=== PATIENT | female | born 1965 | race Caucasian/White ===

== ENCOUNTER 2021-08-23 13:08 | Observation (INO) ==
[2021-08-23 15:59] LABS: Basophils # (auto) 0.02 K/uL (0-0.2); Basophils % (auto) 0.2 %; Eosinophils # (auto) 0.02 K/uL (0-0.5); Eosinophils % (auto) 0.2 %; Hematocrit (blood only) 43.3 % (37-47); Hemoglobin 14.9 g/dL (12.0-16.0); Immature Granulocytes # (auto) 0.02 K/uL (0.00-0.02); Immature Granulocytes % (auto) 0.2 %; Lymphocytes # (auto) 1.96 K/uL (1.2-3.4); Lymphocytes % (auto) 15.6 %; Mean Corpuscular Hemoglobin 29.5 pg (25-34); Mean Corpuscular Hgb Conc 34.4 g/dL (32-36); Mean Corpuscular Volume 85.7 fL (80-100); Monocytes # (auto) 1.32 K/uL (0.11-0.59); Monocytes % (auto) 10.5 %; Neutrophils # (auto) 9.21 K/uL (1.4-6.5); Neutrophils % (auto) 73.3 %; Platelet Count 208 K/uL (130-400); RDW Coefficient of Variation 13.3 % (11.5-14.5); RDW Standard Deviation 41.4 fL (36.4-46.3); Red Blood Count 5.05 M/uL (4.2-5.4); White Blood Count 12.55 K/uL (4.8-10.8)
[2021-08-23 16:04] LABS: Appearance Urine Clear (Clear); Bacteria Urine Automated Negative (Negative); Bilirubin Urine Negative (Negative); Blood Urine 2+ (Negative); Color Urine Orange; Epithelial Cell Urine Auto 20-30 /lpf (0-5); Glucose Urine UA Negative (Negative); Ketones Urine 2+ (Negative); Leukocyte Esterase Urine Negative (Negative); Nitrite Urine Negative (Negative); Protein Urine Negative (Negative); RBC Urine Automated 0-4 /hpf (0-4); Specific Gravity Urine 1.017 (1.000-1.030); Urobilinogen Urine Negative (Negative); pH Urine 5.5 (4.5-7.5)
[2021-08-23 16:17] LABS: Alanine Aminotransferase 89 U/L (12-78); Albumin Level 3.7 gm/dl (3.4-5.0); Aspartate Aminotransferase 65 U/L (15-37); BUN Creatinine Ratio 10.9 (10-20); Blood Urea Nitrogen 9 mg/dl (7-18); Calcium 9.3 mg/dl (8.5-10.1); Carbon Dioxide 25 mmol/L (21-32); Chloride 102 mmol/L (98-107); Creatinine Clr Calc Pharmacy 94.9 ml/min; Est GFR (Non-African American) 79.3 ml/min; Glucose 95 mg/dl (70-99); Lipase 83 U/L (73-393); Pregnancy Test, Serum Negative (Negative); Sodium 134 mmol/L (136-145)
[2021-08-23 16:20] LABS: Albumin Globulin Ratio 0.8 (0.9-2); Alkaline Phosphatase 116 U/L (45-117); Bilirubin,Total 1.3 mg/dl (0.2-1); Globulin 4.7 gm/dl (2.5-4.0); Total Protein 8.4 gm/dl (6.4-8.2)
[2021-08-23] MEDS ORDERED: SODIUM CHLORIDE 0.9% 1000ML 1,000 ML IV ONE ×2 (18:29→20:32)
[2021-08-23] MEDS ORDERED: fentaNYL citrate 100 MCG/2 ML VIAL IV STA (18:29)
[2021-08-23] MEDS ORDERED: ONDANSETRON INJ 2 MG/ML 2 ML VIAL IV STA (18:29)
--- NOTE | 2021-08-23 18:35 | Emergency Department Note ---
Impression & Plan Acute cholecystitis, Smoker ED Provider Note Name: AMEENA DURAN Age: 55 Sex: F Arrives Via: Walk-In Informant: Patient, ED Provider: Joseph Braun MD Chief Complaint: Epigastric Pain Impression: Acute Cholecystitis Smoker Medical Decision Makin yr old female with history tobacco use arrives for acute epigastric pain over last 2 to 3 days, already seen OSH with findings of GB dysfunction and advised Gen Surg follow up. Arrives in quite some discomfort which was controlled with IV fentanyl and zofran. Labs with mild LFT bump and given amount of epigastric TTP felt that CT imaging indicated. CT with acute cholecytitis. CXR clear and labs otherwise OK. EKG ok and covid negative. Gen Surg in to evaluate and will take to OR in am. Triage/Nursing Notes reviewed by Me Differentials:Cholecystitis, Biliary Disfunction, ACS, PE, Dissection, AAA, renal disease, diverticulitis, mesenteric ischemia, pud, pancreatitis, amongst other pathologies. Vital Signs: reviewed and remarkable for no significant abnormalities Interventions: fentanyl iv, dilaudid iv, zofran iv, mefoxin 2gm iv, nss bolus Labs:Reviewed and remarkable for mild lft elevation Imaging:Radiologist interpretation reviewed by me: acute cholecytisis EKG:Per My Interpretation: Indication pre-op: Sinus tach 13 bpm, qtc 434. No Ectopy. No Ischemia. No previous for comparison Consults:Dr Hernandez Gen Surg Plan: Disposition:Hospitalization. Condition: Good History of Present Illness:55 yr old female arrives for evaluation of epigastric pain. Patient notes that she started having epigastric pain ye sterday. Rapidly worsening with radiation to LUQ. Notes at times it feels like her shoulder blades hurt. Associated nausea, chills, fevers, and weakness. Denies chest pain, shob, syncope, headache, neck pain, rashes, leg pain, back pain (beyond baseline sciatica), blood in stool, diarrhea, urinary symptoms, vomiting, leg swelling, nor other symptoms. Movement makes worse. Staying still makes better. No trauma, injuries, falls. No previous abdominal issues. Notes fentanyl at OSH helped some yesterday. She was seen at [facility] yesterday and after US stated that she was d/c'd to follow up with Gen Surg for possibly bad gallbladder. Pain persists and thus came to ED here. Not covid vaccinated, has not had covid that she is aware. ROS: See above HPI for pertinent positives & negatives. A total of 10 systems reviewed and were otherwise negative. Past Medical History:Spontaneous Pneumothorax, Sciatica, Treated Lymphoma Past Surgical History:Tube Thoracostomy Family History:Healthy Social History:Smoker, no drugs, no etoh, Home Medications:Multivitamins Allergies:Nulasta Vitals:Blood Pressure: 117/76, Pulse 110, RR 16, T 36.6C, O2 96% on RA Physical Exam: GENERAL: Patient is very uncomfortable appearing and in moderate distress. EYES: No scleral icterus, unremarkable pupils. ENT: Mucous membranes moist, no nasal congestion. NECK: No masses appreciated, nomeningismus, trachea is midline. RESPIRATORY: Rhonchi left lower lobe. No dyspnea. Clear to auscultation otherwise. No wheeze. CARDIOVASCULAR: Regular rate and rhythm.No murmurs, rubs, gallops appreciated. GASTROINTESTINAL: Very tender LUQ and Epigastrium with guarding, otherwise Abdomen soft.Bowel sounds positive. BACK: No midline tenderness, no CVA tenderness EXTREMITIES: Normal motion all extremities, no cyanosis, no edema. NEUROLOGIC: Alert and oriented, no acute motor or sensory deficits, no focal weakness, cranial nerves grossly intact. SKIN: No rash, no jaundice, no diaphoresis. PSYCH: Appropriate GCS: 15 ED Course: Times/Reassessments: gradual improvement, stable, agreeable to ho spitalization/or Joseph Braun MD Past Med/Surg History Social History Smoking Status: Current every day smoker Tobacco Type: Cigarettes Feels Safe at Home: Yes Allergies Allergies Allergy/AdvReac Type Severity Reaction Status Date / Time No Known Allergies Allergy Unverified 08/23/21 19:02 Home Meds Home Medications Medication Instructions Recorded Confirmed hyoscyamine sulfate 0.125 mg tablet 0.125 mg PO BID PRN 08/23/21 08/23/21 Results & Data (ED) Vital Signs Vital Signs - 24 hr 08/23/21 13:27 08/23/21 18:39 08/23/21 21:19 Temperature 36.6 C Temperature Source Temporal Artery Scan Pulse Rate 100 H 102 H Pulse Rate [Apical] 102 H 95 H Respiratory Rate 16 16 20 Respiratory Depth Normal Blood Pressure 117/76 Blood Pressure [Right Arm] 114/67 Blood Pressure Mean 89 Blood Pressure Mean [Right Arm] 82 Pulse Oximetry 96 98 98 Oxygen Delivery Method Room Air Room Air Sepsis Recent Fever Within 48 Hours No Sepsis New/Unexplained Change in Mental Status No Sepsis Action Taken by Nursing No Action Required Laboratory Data Result diagrams: 08/23/21 15:50 08/23/21 15:50 Lab Results 08/23/21 08/23/21 08/23/21 Range/Units 15:50 15:50 15:50 WBC 12.55 H (4.8-10.8) K/uL RBC 5.05 (4.2-5.4) M/uL Hgb 14.9 (12.0-16.0) g/dL Hct 43.3 (37-47) % MCV 85.7 (80-100) fL MCH 29.5 (25-34) pg MCHC 34.4 (32-36) g/dL RDW Std Deviation 41.4 (36.4-46.3) fL RDW Coeff of Barbara 13.3 (11.5-14.5) % Plt Count 208 (130-400) K/uL MPV 11.0 H (7.4-10.4) fL Immature Gran % (Auto) 0.2 % Neut % (Auto) 73.3 % Lymph % (Auto) 15.6 % Mcdowell % (Auto) 10.5 % Eos % (Auto) 0.2 % Baso % (Auto) 0.2 % Neut # (Auto) 9.21 H (1.4-6.5) K/uL Lymph # (Auto) 1.96 (1.2-3.4) K/uL Mcdowell # (Auto) 1.32 H (0.11-0.59) K/uL Eos # (Auto) 0.02 (0-0.5) K/uL Baso # (Auto) 0.02 (0-0.2) K/uL Immature Gran # (Auto) 0.02 (0.00-0.02) K/uL Sodium 134 L (136-145) mmol/L Potassium 4.0 (3.5-5.1) mmol/L Chloride 102 (98-107) mmol/L Carbon Dioxide 25 (21-32) mmol/L Anion Gap 7.0 (3-11) BUN 9 (7-18) mg/dl Creatinine 0.84 (0.6-1.2) mg/dl Est Cr Clr Drug Dosing 94.9 ml/min Est GFR ( Amer) 92.0 ml/min Est GFR (Non-Af Amer) 79.3 ml/min BUN/Creatinine Ratio 10.9 (10-20) Glucose 95 (70-99) mg/dl Calcium 9.3 (8.5-10.1) mg/dl Total Bilirubin 1.3 H (0.2-1) mg/dl AST 65 H (15-37) U/L ALT 89 H (12-78) U/L Alkaline Phosphatase 116 (45-117) U/L Troponin I < 0.015 (0-0.045) ng/ml Total Protein 8.4 H (6.4-8.2) gm/dl Albumin 3.7 (3.4-5.0) gm/dl Globulin 4.7 H (2.5-4.0) gm/dl Albumin/Globulin Ratio 0.8 L (0.9-2) Lipase 83 (73-393) U/L HCG, Qual Negative (Negative) Urine Color Urine Appearance (Clear) Urine pH (4.5-7.5) Ur Specific [place] (1.000-1.030) Urine Protein (Negative) Urine Glucose (UA) (Negative) Urine Ketones (Negative) Urine Blood (Negative) Urine Nitrite (Negative) Urine Bilirubin (Negative) Urine Urobilinogen (Negative) Ur Leukocyte Esterase (Negative) Urine WBC (Auto) (0-5) /hpf Urine RBC (Auto) (0-4) /hpf U Hyaline Cast (Auto) (0-5) /lpf U Epithel Cells (Auto) (0-5) /lpf Urine Bacteria (Auto) (Negative) COVID-19 Eval Order SARS-CoV-2 (PCR) (Negative) 08/23/21 08/23/21 08/23/21 Range/Units 15:50 21:03 21:03 WBC (4.8-10.8) K/uL RBC (4.2-5.4) M/uL Hgb (12.0-16.0) g/dL Hct (37-47) % MCV (80-100) fL MCH (25-34) pg MCHC (32-36) g/dL RDW Std Deviation (36.4-46.3) fL RDW Coeff of Barbara (11.5-14.5) % Plt Count (130-400) K/uL MPV (7.4-10.4) fL Immature Gran % (Auto) % Neut % (Auto) % Lymph % (Auto) % Mcdowell % (Auto) % Eos % (Auto) % Baso % (Auto) % Neut # (Auto) (1.4-6.5) K/uL Lymph # (Auto) (1.2-3.4) K/uL [place]owell # (Auto) (0.11-0.59) K/uL Eos # (Auto) (0-0.5) K/uL Baso # (Auto) (0-0.2) K/uL Immature Gran # (Auto) (0.00-0.02) K/uL Sodium (136-145) mmol/L Potassium (3.5-5.1) mmol/L Chloride (98-107) mmol/L Carbon Dioxide (21-32) mmol/L Anion Gap (3-11) BUN (7-18) mg/dl Creatinine (0.6-1.2) mg/dl Est Cr Clr Drug Dosing ml/min Est GFR ( Amer) ml/min Est GFR (Non-Af Amer) ml/min BUN/Creatinine Ratio (10-20) Glucose (70-99) mg/dl Calcium (8.5-10.1) mg/dl Total Bilirubin (0.2-1) mg/dl AST (15-37) U/L ALT (12-78) U/L Alkaline Phosphatase (45-117) U/L Troponin I (0-0.045) ng/ml Total Protein (6.4-8.2) gm/dl Albumin (3.4-5.0) gm/dl Globulin (2.5-4.0) gm/dl Albumin/Globulin Ratio (0.9-2) Lipase (73-393) U/L HCG, Qual (Negative) Urine Color [place] Urine Appearance Clear (Clear) Urine pH 5.5 (4.5-7.5) Ur Specific [place] 1.017 (1.000-1.030) Urine Protein Negative (Negative) Urine Glucose (UA) Negative (Negative) Urine Ketones 2+ H (Negative) Urine Blood 2+ H (Negative) Urine Nitrite Negative (Negative) Urine Bilirubin Negative (Negative) Urine Urobilinogen Negative (Negative) Ur Leukocyte Esterase Negative (Negative) Urine WBC (Auto) 1-5 (0-5) /hpf Urine RBC (Auto) 0-4 (0-4) /hpf U Hyaline Cast (Auto) 1-5 (0-5) /lpf U Epithel Cells (Auto) 20-30 H (0-5) /lpf Urine Bacteria (Auto) Negative (Negative) COVID-19 Eval Order Covid19 at [facility] SARS-CoV-2 (PCR) NEGATIVE (Negative) Administered Medications Discontinued Medications Fentanyl Citrate (Fentanyl Citrate 100 Mcg/2 Ml Vial) 75 mcg IV NOW STA Stop: 08/23/21 18:30 Last Admin: 08/23/21 18:39 Dose: 75 mcg Documented by: [id number] Hydromorphone HCl (Hydromorphone Inj 0.5 Mg/0.5 Ml Syr) 0.5 mg IV NOW STA Stop: 08/23/21 20:37 Last Admin: 08/23/21 21:18 Dose: 0.5 mg Documented by: [id number] Sodium Chloride (Nss 1000ml) 1,000 mls @ 999 mls/hr IV .Q1H1M ONE Stop: 08/23/21 19:29 Last Infusion: 08/23/21 19:11 Dose: 0 mls/hr Documented by: [id number] Admin: 08/23/21 18:39 Dose: 999 mls/hr Documented by: [id number] Cefoxitin Sodium (Mefoxin) 2,000 mg in 60 mls @ 100 mls/hr IV NOW STA Stop: 08/23/21 20:30 Last Infusion: 08/23/21 20:21 Dose: 0 mls/hr Documented by: [id number] Admin: 08/23/21 20:00 Dose: 100 mls/hr Documented by: [id number] Sodium Chloride (Nss 1000ml) 1,000 mls @ 999 mls/hr IV .Q1H1M ONE Stop: 08/23/21 21:32 Last Infusion: 08/23/21 22:37 Dose: 0 mls/hr Documented by: [id number] Admin: 08/23/21 21:18 Dose: 999 mls/hr Documented by: [id number] Ioversol (Optiray 320 100ml) 94 ml IV ONCE ONE Stop: 08/23/21 19:38 Last Admin: 08/23/21 19:38 Dose: 1 ml Documented by: [id number] Ondansetron HCl (Ondansetron Inj 2 Mg/Ml 2 Ml Vial) 4 mg IV NOW STA Stop: 08/23/21 18:30 Last Admin: 08/23/21 18:39 Dose: 4 mg Documented by: [id number] Imaging Data Radiologist's Impression: Abdomen/Pelvis CT 08/23/21 18:[address] WITH IV CONTRAST CT DOSE: 595.59 mGy.cm HISTORY: Acute epigastric and left upper quadrant abdominal pain epigastric, LUQ pain TECHNIQUE: Multiaxial CT images of the abdomen and pelvis were performed following the IV administration of 94 cc of Optiray, A dose lowering technique was utilized adhering to the principles of ALARA. COMPARISON STUDY: Chest radiograph of same day FINDINGS: The imaged inferior cardiac chambers are unremarkable. Linear subsegmental bibasilar atelectasis. No pneumatosis or pneumoperitoneum. The spleen, pancreas, adrenal glands and liver appear unremarkable. 6 mm indeterminate hypodense lesion of the right hepatic lobe on image 21 series 2 is likely benign. Patency of the hepatic and portal veins. Distended gallbladder with moderate wall thickening and pericholecystic edema. No biliary ductal dilation or cholelithiasis identified. There are a few partially calcified lymph nodes within the carlitos hepatis. Unremarkable kidneys. No hydronephrosis. Unremarkable urinary bladder. Hysterectomy. Trace free fluid within the dependent pelvis. Atherosclerosis of the aorta without aneurysm. No adenopathy. Unremarkable IVC. Mild wall thickening of the duodenum is likely reactive. Colonic diverticulosis. Mild fecal retention. Mild wall thickening of the ascending colon the, also likely reactive. Normal appendix. Unremarkable soft tissues. No acute fracture. Degenerative changes of the spine. Lumbar levoscoliosis. This IMPRESSION: 1. Findings suggestive of acute cholecystitis. No cholelithiasis or biliary ductal dilation identified. 2. Mild wall thickening of the proximal duodenum and ascending colon with trace pelvic free fluid, likely reactive. 3. No bowel obstruction. Normal appendix. 4. Colonic diverticulosis. ACT 112: Negative or not required by law. The above report was generated using voice recognition software. It may contain grammatical, syntax or spelling errors. Electronically signed by: Pete Post M.D. 08/23/2021 8:07 PM Chest X-Ray 08/23/21 18:29 XR chest 1V portable HISTORY: 55 years-old Female epigastric pain, rhonchi acute epigastric abdominal pain COMPARISON: None TECHNIQUE: Portable AP view of the chest FINDINGS: Cardiomediastinal and hilar silhouettes are within normal limits. Calcified plaque of the thoracic aorta. No pneumothorax, pleural effusion, airspace consolidation or overt pulmonary edema. Bones appear grossly intact. IMPRESSION: No acute process. ACT 112: Negative or not required by law. The above report was generated using voice recognition software. It may contain grammatical, syntax or spelling errors. Electronically signed by: Pete Post M.D. 08/23/2021 6:53 PM Discharge Plan Visit Data Chief Complaint: GI Assessment Stated Complaint: CHEST PAIN/BACK PAIN/PAIN UNDER RIBS ED Provider: Joseph Braun Discharge Problem: Acute cholecystitis, Smoker Patient Disposition: Admitted As Inpatient Discharge Instructions Interventions: ED Discharge Assessment Last Done: 08/24/21 00:55
--- NOTE | 2021-08-23 18:54 | XRay Report ---
XR chest 1V portable HISTORY: 55 years-old Female epigastric pain, rhonchi acute epigastric abdominal pain COMPARISON: None TECHNIQUE: Portable AP view of the chest FINDINGS: Cardiomediastinal and hilar silhouettes are within normal limits. Calcified plaque of the thoracic ao rta. No pneumothorax, pleural effusion, airspace consolidation or overt pulmonary edema. Bones appear grossly intact. IMPRESSION: No acute process. ACT 112: Negative or not required by law. The above report was generated using voice recognition software. It may contain grammatical, syntax o r spelling errors. Electronically signed by: Pete Post M.D. 08/23/2021 6:53 PM
[2021-08-23] MEDS ORDERED: OPTIRAY 320 100ml IV ONE (19:37)
[2021-08-23] MEDS ORDERED: cefOXitin 2,000 MG/60 ML BAG IV STA (19:55)
--- NOTE | 2021-08-23 20:09 | CT Scan Report ---
ABDOMEN AND PELVIS CT WITH IV CONTRAST CT DOSE: 595.59 mGy.cm HISTORY: Acute epigastric and left upper quadrant abdominal pain epigastric, LUQ pain TECHNIQUE: Multiaxial CT images of the abdomen and pelvis were performed following the IV administrat ion of 94 cc of Optiray, A dose lowering technique was utilized adhering to the principles of ALARA. COMPARISON STUDY: Chest radiograph of same day FINDINGS: The imaged inferior cardiac chambers are unremarkable. Linear subsegmental bibasilar atelectasis. No pneumatosis or pneumoperitoneum. The spleen, pancreas, adrenal glands and liver appear unremarkable. 6 mm indeterminate hypodense lesion of the right hepatic lobe on image 21 series 2 is likely benign. Patency of the hepatic and portal veins. Distended gallbladder with moderate wall thickening and rosy cholecystic edema. No biliary ductal dilation or cholelithiasis identified. There are a few partially calcified lymph nodes within the carlitos hepatis. Unremarkable kidneys. No hydronephrosis. Unremarkable urinary bladder. Hysterectomy. Trace free fluid within the dependent pelvis. Atherosclerosis of the aorta without aneurysm. No adenopathy. Unremarka ble IVC. Mild wall thickening of the duodenum is likely reactive. Colonic diverticulosis. Mild fecal retention. Mild wall thickening of the ascending colon the, also likely reactive. Normal appendix. Un remarkable soft tissues. No acute fracture. Degenerative changes of the spine. Lumbar levoscoliosis. This IMPRESSION: 1. Findings suggestive of acute cholecystitis. No cholelithiasis or biliary ductal dilation identifie d. 2. Mild wall thickening of the proximal duodenum and ascending colon with trace pelvic free fluid, li venkata reactive. 3. No bowel obstruction. Normal appendix. 4. Colonic diverticulosis. ACT 112: Negative or not required by law. The above report was generated using voice recognition software. It may contain grammatical, syntax o r spelling errors. Electronically signed by: Pete Post M.D. 08/23/2021 8:07 PM
[2021-08-23 20:11] LABS: Troponin I < 0.015 ng/ml (0-0.045)
[2021-08-23] MEDS ORDERED: HYDROmorphone INJ 0.5 MG/0.5 ML SYR IV STA (20:36)
[2021-08-23] MEDS ORDERED: HYDROmorphone INJ 0.5 MG/0.5 ML SYR IV PRN (20:36)
--- NOTE | 2021-08-23 22:21 | History & Physical Report ---
Date of Service August 23, 2021 Assessment & Plan (1) Acute cholecystitis: Plan: 55-year-old woman with acute cholecystitis. She has been administered antibiotics in the emergency department. Covid test is pending. I discussed with her the risks and benefits of laparoscopic, possible open cholecystectomy. The risks include: Bleeding, infection, injury to the surrounding structures, leak, obstruction, need for open or further procedures, diarrhea. She unde rstands and is agreeable to proceed with the surgery. All her questions have been answered. We will admit her to the hospital for IV antibiotics and pain control, and set her up for laparoscopic cholecystectomy first thing in the morning. History of Present Illness Primary Care Provider: Olga ShardaElayne Thomas 55-year-old woman who presents with 2-day history of right upper quadrant pain, progressing to epigastric and back pain up to the right shoulder. She has had some chills with this pain. Positive nausea, no vomiting. She denies acholic stools, dark urine, pruritus, jaundice. She was seen in another emergency room yesterday, and ultrasound was done which demonstrated a "bad gallbladder ". She was sent home to contact her surgeon. The pain worsened this morning and she came to the ER here. A CT scan demonstrates a distended gallbladder with significant inflammation and pericholecystic fluid. Allergies Allergy/AdvReac Type Severity Reaction Status Date / Time No Known Allergies Allergy Unverified 08/23/21 19:02 Home Medications Medication Instructions Recorded Confirmed Type hyoscyamine sulfate 0.125 mg tablet 0.125 mg PO BID PRN 08/23/21 08/23/21 History Past Med/Surg History Social History Smoking Status: Current every day smoker Tobacco Type: Cigarettes Feels Safe at Home: Yes Review of Systems Review of Systems: All systems reviewed & are unremarkable except as noted in HPI & below Physical Exam Constitutional: WD/WN, vitals as above Eyes: PERRL, conjunctivae normal, anicteric sclerae Neck: trachea midline, no thyromegaly Respiratory: normal respiratory effort, lungs clear to auscultation Cardiovascular: RRR, no murmur, no edema Gastrointestinal (Abdomen): Inspection/Auscultation: abdomen normal to inspection; abdomen not distended and no abdominal surgical scar P ercussion/Palpation: + abdomen tender (RUQ/epigastrium) and abdomen soft; no guarding and abdomen not rigid Musculoskeletal: Extremities: no cyanosis and no clubbing Skin: no rashes, warm and dry Psychiatric: A+Ox3, euthymic affect Results & Data Results & Data ([facility]) Vital Signs (Past 12 Hours) Vital Signs Temp Pulse Pulse Resp BP BP Pulse Ox 08/23/21 21:19 95 H 20 98 08/23/21 18:39 102 H 102 H 16 114/67 98 08/23/21 13:27 36.6 C 100 H 16 117/76 96 Laboratory Results 08/23/21 08/23/21 08/23/21 Range/Units 21:03 21:03 15:50 WBC (4.8-10.8) K/uL RBC (4.2-5.4) M/uL Hgb (12.0-16.0) g/dL Hct (37-47) % MCV (80-100) fL MCH (25-34) pg MCHC (32-36) g/dL RDW Std Deviation (36.4-46.3) fL RDW Coeff of Barbara (11.5-14.5) % Plt Count (130-400) K/uL MPV (7.4-10.4) fL Immature Gran % (Auto) % Neut % (Auto) % Lymph % (Auto) % [place] % (Auto) % Eos % (Auto) % Baso % (Auto) % Neut # (Auto) (1.4-6.5) K/uL Lymph # (Auto) (1.2-3.4) K/uL [place] # (Auto) (0.11-0.59) K/uL Eos # (Auto) (0-0.5) K/uL Baso # (Auto) (0-0.2) K/uL Immature Gran # (Auto) (0.00-0.02) K/uL Sodium (136-145) mmol/L Potassium (3.5-5.1) mmol/L Chloride (98-107) mmol/L Carbon Dioxide (21-32) mmol/L Anion Gap (3-11) BUN (7-18) mg/dl Creatinine (0.6-1.2) mg/dl Est Cr Clr Drug Dosing ml/min Est GFR ( Amer) ml/min Est GFR (Non-Af Amer) ml/min BUN/Creatinine Ratio (10-20) Glucose (70-99) mg/dl Calcium (8.5-10.1) mg/dl Total Bilirubin (0.2-1) mg/dl AST (15-37) U/L ALT (12-78) U/L Alkaline Phosphatase (45-117) U/L Troponin I (0-0.045) ng/ml Total Protein (6.4-8.2) gm/dl Albumin (3.4-5.0) gm/dl Globulin (2.5-4.0) gm/dl Albumin/Globulin Ratio (0.9-2) Lipase (73-393) U/L HCG, Qual (Negative) Urine Color [place] Urine Appearance Clear (Clear) Urine pH 5.5 (4.5-7.5) Ur Specific [place] 1.017 (1.000-1.030) Urine Protein Negative (Negative) Urine Glucose (UA) Negative (Negative) Urine Ketones 2+ H (Negative) Urine Blood 2+ H (Negative) Urine Nitrite Negative (Negative) Urine Bilirubin Negative (Negative) Urine Urobilinogen Negative (Negative) Ur Leukocyte Esterase Negative (Negative) Urine WBC (Auto) 1-5 (0-5) /hpf Urine RBC (Auto) 0-4 (0-4) /hpf U Hyaline Cast (Auto) 1-5 (0-5) /lpf U Epithel Cells (Auto) 20-30 H (0-5) /lpf Urine Bacteria (Auto) Negative (Negative) COVID-19 Eval Order Covid19 at [facility] SARS-CoV-2 (PCR) Pending 08/23/21 08/23/21 08/23/21 Range/Units 15:50 15:50 15:50 WBC 12.55 H (4.8-10.8) K/uL RBC 5.05 (4.2-5.4) M/uL Hgb 14.9 (12.0-16.0) g/dL Hct 43.3 (37-47) % MCV 85.7 (80-100) fL MCH 29.5 (25-34) pg MCHC 34.4 (32-36) g/dL RDW Std Deviation 41.4 (36.4-46.3) fL RDW Coeff of Barbara 13.3 (11.5-14.5) % Plt Count 208 (130-400) K/uL MPV 11.0 H (7.4-10.4) fL Immature Gran % (Auto) 0.2 % Neut % (Auto) 73.3 % Lymph % (Auto) 15.6 % [place] % (Auto) 10.5 % Eos % (Auto) 0.2 % Baso % (Auto) 0.2 % Neut # (Auto) 9.21 H (1.4-6.5) K/uL Lymph # (Auto) 1.96 (1.2-3.4) K/uL [place] # (Auto) 1.32 H (0.11-0.59) K/uL Eos # (Auto) 0.02 (0-0.5) K/uL Baso # (Auto) 0.02 (0-0.2) K/uL Immature Gran # (Auto) 0.02 (0.00-0.02) K/uL Sodium 134 L (136-145) mmol/L Potassium 4.0 (3.5-5.1) mmol/L Chloride 102 (98-107) mmol/L Carbon Dioxide 25 (21-32) mmol/L Anion Gap 7.0 (3-11) BUN 9 (7-18) mg/dl Creatinine 0.84 (0.6-1.2) mg/dl Est Cr Clr Drug Dosing 94.9 ml/min Est GFR ( Amer) 92.0 ml/min Est GFR (Non-Af Amer) 79.3 ml/min BUN/Creatinine Ratio 10.9 (10-20) Glucose 95 (70-99) mg/dl Calcium 9.3 (8.5-10.1) mg/dl Total Bilirubin 1.3 H (0.2-1) mg/dl AST 65 H (15-37) U/L ALT 89 H (12-78) U/L Alkaline Phosphatase 116 (45-117) U/L Troponin I < 0.015 (0-0.045) ng/ml Total Protein 8.4 H (6.4-8.2) gm/dl Albumin 3.7 (3.4-5.0) gm/dl Globulin 4.7 H (2.5-4.0) gm/dl Albumin/Globulin Ratio 0.8 L (0.9-2) Lipase 83 (73-393) U/L HCG, Qual Negative (Negative) Urine Color Urine Appearance (Clear) Urine pH (4.5-7.5) Ur Specific [place] (1.000-1.030) Urine Protein (Negative) Urine Glucose (UA) (Negative) Urine Ketones (Negative) Urine Blood (Negative) Urine Nitrite (Negative) Urine Bilirubin (Negative) Urine Urobilinogen (Negative) Ur Leukocyte Esterase (Negative) Urine WBC (Auto) (0-5) /hpf Urine RBC (Auto) (0-4) /hpf U Hyaline Cast (Auto) (0-5) /lpf U Epithel Cells (Auto) (0-5) /lpf Urine Bacteria (Auto) (Negative) COVID-19 Eval Order SARS-CoV-2 (PCR) Diagnostic Findings ABDOMEN AND PELVIS CT WITH IV CONTRAST CT DOSE: 595.59 mGy.cm HISTORY: Acute epigastric and left upper quadrant abdominal pain epigastric, LUQ pain TECHNIQUE: Multiaxial CT images of the abdomen and pelvis were performed following the IV administration of 94 cc of Optiray, A dose lowering technique was utilized adhering to the principles of ALARA. COMPARISON STUDY: Chest radiograph of same day FINDINGS: The imaged inferior cardiac chambers are unremarkable. Linear subsegmental bibasilar atelectasis. No pneumatosis or pneumoperitoneum. The spleen, pancreas, adrenal glands and liver appear unremarkable. 6 mm indeterminate hypodense lesion of the right hepatic lobe on image 21 series 2 is likely benign. Patency of the hepatic and portal veins. Distended gallbladder with moderate wall thickening and pericholecystic edema. No biliary ductal dilation or cholelithiasis identified. There are a few partially calcified lymph nodes within the carlitos hepatis. Unremarkable kidneys. No hydronephrosis. Unremarkable urinary bladder. Hysterectomy. Trace free fluid within the dependent pelvis. Atherosclerosis of the aorta without aneurysm. No adenopathy. Unremarkable IVC. Mild wall thickening of the duodenum is likely reactive. Colonic diverticulosis. Mild fecal retention. Mild wall thickening of the ascending colon the, also likely reactive. Normal appendix. Unremarkable soft tissues. No acute fracture. Degenerative changes of the spine. Lumbar levoscoliosis. This IMPRESSION: 1. Findings suggestive of acute cholecystitis. No cholelithiasis or biliary ductal dilation identified. 2. Mild wall thickening of the proximal duodenum and ascending colon with trace pelvic free fluid, likely reactive. 3. No bowel obstruction. Normal appendix. 4. Colonic diverticulosis. Code Status & VTE Plan VTE Prophylaxis Plan VTE Prophylaxis will be ordered: Yes
[2021-08-24] MEDS ORDERED: HYDROmorphone INJ 0.5 MG/0.5 ML SYR IV PRN (01:31)
[2021-08-24] MEDS ORDERED: diphenhydrAMINE 50 MG/ML VIAL IV PRN (01:31)
[2021-08-24] MEDS ORDERED: PIPERACILL/TAZOBAC CONSULT ACTIVE PRN (01:31)
[2021-08-24] MEDS: LACTATED RINGER'S 1,000 ML IV SCH ×2 (01:31→16:36)
[2021-08-24] MEDS ORDERED: PIPERACILLIN/TAZOBACTAM 4.5 GM in DEXTROSE 5% 100 ML IV ONE (02:00)
[2021-08-24] MEDS: ENOXAPARIN INJ 40 MG/0.4 ML SYR SQ SCH ×2 (02:35→22:28)
[2021-08-24] MEDS ORDERED: PROPOFOL IV EMULSION 10 MG/ML 20 ML VIAL IV ONE (06:29)
[2021-08-24] MEDS ORDERED: MIDAZOLAM HCL 1 MG/ML 2ML VIAL ONE (06:29)
[2021-08-24] MEDS ORDERED: ROCURONIUM BROMIDE 10 MG/ML 5 ML VIAL IV ONE (06:29)
[2021-08-24] MEDS ORDERED: DEXAMETHASONE SOD INJ 4 MG/ML VIAL ONE (06:29)
[2021-08-24] MEDS ORDERED: fentaNYL citrate 100 MCG/2 ML VIAL ONE ×3 (06:29→09:05)
[2021-08-24] MEDS ORDERED: LIDOCAINE 2% 2 ML VIAL/AMP(20MG/ML) INFIL ONE (06:29)
[2021-08-24] MEDS ORDERED: ONDANSETRON INJ 2 MG/ML 2 ML VIAL ONE ×2 (06:29→08:24)
[2021-08-24] MEDS ORDERED: EPINEPHrine INJ 1 MG/ML AMP ONE (07:05)
[2021-08-24] MEDS ORDERED: BUPIVACAINE 0.25% 30 ML VIAL ONE (07:06)
--- NOTE | 2021-08-24 07:24 | Surgery Progress Note ---
Date of Service August 24, 2021 Assessment & Plan (1) Acute cholecystitis: Plan: 55-year-old woman with acute cholecystitis. She has been administered antibiotics in the emergency department. Covid test is pending. I discussed with her the risks and benefits of laparoscopic, possible open cholecystectomy. The risks include: Bleeding, infection, injury to the surrounding structures, leak, obstruction, need for open or further procedures, diarrhea. She unde rstands and is agreeable to proceed with the surgery. All her questions have been answered. We will admit her to the hospital for IV antibiotics and pain control, and set her up for laparoscopic cholecystectomy first thing in the morning. Admission and Anticipated Discharge Date Admission Date: August 23, 2021 Subjective 55-year-old woman with acute cholecystitis. She is feeling slightly improved this morning. Less abdominal pain. She denies nausea and vomiting. Physical Exam Constitutional: WD/WN, vitals as above Eyes: PERRL, conjunctivae normal, anicteric sclerae Neck: trachea midline, no thyromegaly Respiratory: normal respiratory effort, lungs clear to auscultation Cardiovascular: RRR, no murmur, no edema Gastrointestinal (Abdomen): Inspection/Auscultation: abdomen normal to inspection; abdomen not distended and no abdominal surgical scar Percussion/Palpation: + abdomen tender (RUQ/epigastrium) and abdomen soft; no guarding and abdomen not rigid Musculoskeletal: Extremities: no cyanosis and no clubbing Skin: no rashes, warm and dry Psychiatric: A+Ox3, euthymic affect Results & Data ([facility]) Vital Signs (Past 12 Hours) Vital Signs Temp Pulse Pulse Pulse Resp BP Pulse Ox 08/24/21 07:04 36.7 C 95 H 16 120/73 93 08/24/21 01:30 36.6 C 101 H 18 112/74 93 08/24/21 00:40 87 18 08/24/21 00:30 89 21 08/24/21 00:20 90 23 08/24/21 00:10 91 H 19 08/24/21 00:00 90 18 08/23/21 23:50 98 H 20 08/23/21 23:40 90 17 08/23/21 23:30 90 19 08/23/21 23:20 89 22 08/23/21 21:19 95 H 20 98 Pulse Ox 08/24/21 07:04 08/24/21 01:30 101 H 08/24/21 00:40 08/24/21 00:30 08/24/21 00:20 08/24/21 00:10 08/24/21 00:00 08/23/21 23:50 08/23/21 23:40 08/23/21 23:30 08/23/21 23:20 08/23/21 21:19 Laboratory Results 08/23/21 08/23/21 08/23/21 Range/Units 21:03 21:03 15:50 WBC (4.8-10.8) K/uL RBC (4.2-5.4) M/uL Hgb (12.0-16.0) g/dL Hct (37-47) % MCV (80-100) fL MCH (25-34) pg MCHC (32-36) g/dL RDW Std Deviation (36.4-46.3) fL RDW Coeff of Barbara (11.5-14.5) % Plt Count (130-400) K/uL MPV (7.4-10.4) fL Immature Gran % (Auto) % Neut % (Auto) % Lymph % (Auto) % [place] % (Auto) % Eos % (Auto) % Baso % (Auto) % Neut # (Auto) (1.4-6.5) K/uL Lymph # (Auto) (1.2-3.4) K/uL [place] # (Auto) (0.11-0.59) K/uL Eos # (Auto) (0-0.5) K/uL Baso # (Auto) (0-0.2) K/uL Immature Gran # (Auto) (0.00-0.02) K/uL Sodium (136-145) mmol/L Potassium (3.5-5.1) mmol/L Chloride (98-107) mmol/L Carbon Dioxide (21-32) mmol/L Anion Gap (3-11) BUN (7-18) mg/dl Creatinine (0.6-1.2) mg/dl Est Cr Clr Drug Dosing ml/min Est GFR ( Amer) ml/min Est GFR (Non-Af Amer) ml/min BUN/Creatinine Ratio (10-20) Glucose (70-99) mg/dl Calcium (8.5-10.1) mg/dl Total Bilirubin (0.2-1) mg/dl AST (15-37) U/L ALT (12-78) U/L Alkaline Phosphatase (45-117) U/L Troponin I (0-0.045) ng/ml Total Protein (6.4-8.2) gm/dl Albumin (3.4-5.0) gm/dl Globulin (2.5-4.0) gm/dl Albumin/Globulin Ratio (0.9-2) Lipase (73-393) U/L HCG, Qual (Negative) Urine Color [place] Urine Appearance Clear (Clear) Urine pH 5.5 (4.5-7.5) Ur Specific [place] 1.017 (1.000-1.030) Urine Protein Negative (Negative) Urine Glucose (UA) Negative (Negative) Urine Ketones 2+ H (Negative) Urine Blood 2+ H (Negative) Urine Nitrite Negative (Negative) Urine Bilirubin Negative (Negative) Urine Urobilinogen Negative (Negative) Ur Leukocyte Esterase Negative (Negative) Urine WBC (Auto) 1-5 (0-5) /hpf Urine RBC (Auto) 0-4 (0-4) /hpf U Hyaline Cast (Auto) 1-5 (0-5) /lpf U Epithel Cells (Auto) 20-30 H (0-5) /lpf Urine Bacteria (Auto) Negative (Negative) COVID-19 Eval Order Covid19 at [facility] SARS-CoV-2 (PCR) NEGATIVE (Negative) 08/23/21 08/23/21 08/23/21 Range/Units 15:50 15:50 15:50 WBC 12.55 H (4.8-10.8) K/uL RBC 5.05 (4.2-5.4) M/uL Hgb 14.9 (12.0-16.0) g/dL Hct 43.3 (37-47) % MCV 85.7 (80-100) fL MCH 29.5 (25-34) pg MCHC 34.4 (32-36) g/dL RDW Std Deviation 41.4 (36.4-46.3) fL RDW Coeff of [place] 13.3 (11.5-14.5) % Plt Count 208 (130-400) K/uL MPV 11.0 H (7.4-10.4) fL Immature Gran % (Auto) 0.2 % Neut % (Auto) 73.3 % Lymph % (Auto) 15.6 % [place] % (Auto) 10.5 % Eos % (Auto) 0.2 % Baso % (Auto) 0.2 % Neut # (Auto) 9.21 H (1.4-6.5) K/uL Lymph # (Auto) 1.96 (1.2-3.4) K/uL [place] # (Auto) 1.32 H (0.11-0.59) K/uL Eos # (Auto) 0.02 (0-0.5) K/uL Baso # (Auto) 0.02 (0-0.2) K/uL Immature Gran # (Auto) 0.02 (0.00-0.02) K/uL Sodium 134 L (136-145) mmol/L Potassium 4.0 (3.5-5.1) mmol/L Chloride 102 (98-107) mmol/L Carbon Dioxide 25 (21-32) mmol/L Anion Gap 7.0 (3-11) BUN 9 (7-18) mg/dl Creatinine 0.84 (0.6-1.2) mg/dl Est Cr Clr Drug Dosing 94.9 ml/min Est GFR ( Amer) 92.0 ml/min Est GFR (Non-Af Amer) 79.3 ml/min BUN/Creatinine Ratio 10.9 (10-20) Glucose 95 (70-99) mg/dl Calcium 9.3 (8.5-10.1) mg/dl Total Bilirubin 1.3 H (0.2-1) mg/dl AST 65 H (15-37) U/L ALT 89 H (12-78) U/L Alkaline Phosphatase 116 (45-117) U/L Troponin I < 0.015 (0-0.045) ng/ml Total Protein 8.4 H (6.4-8.2) gm/dl Albumin 3.7 (3.4-5.0) gm/dl Globulin 4.7 H (2.5-4.0) gm/dl Albumin/Globulin Ratio 0.8 L (0.9-2) Lipase 83 (73-393) U/L HCG, Qual Negative (Negative) Urine Color Urine Appearance (Clear) Urine pH (4.5-7.5) Ur Specific [place] (1.000-1.030) Urine Protein (Negative) Urine Glucose (UA) (Negative) Urine Ketones (Negative) Urine Blood (Negative) Urine Nitrite (Negative) Urine Bilirubin (Negative) Urine Urobilinogen (Negative) Ur Leukocyte Esterase (Negative) Urine WBC (Auto) (0-5) /hpf Urine RBC (Auto) (0-4) /hpf U Hyaline Cast (Auto) (0-5) /lpf U Epithel Cells (Auto) (0-5) /lpf Urine Bacteria (Auto) (Negative) COVID-19 Eval Order SARS-CoV-2 (PCR) (Negative)
[2021-08-24] MEDS: PIPERACILLIN/TAZOBACTAM 3.375 GM in DEXTROSE 5% 100 ML IV SCH ×3 (07:26→22:28)
--- NOTE | 2021-08-24 07:28 | Anesthesiology Consultation ---
Date of Service August 24, 2021 Assessment & Plan (1) Encounter for pre-operative examination: Chart Review Chart Review: Acceptable Risk for Surgery and Patient NOT seen in Pre Admission Testing Consults Requested none History Surgery Operation Date: 08/24/21 07:00 Proposed Procedures p Laparoscopic Cholecystectomy - Anthony Hernandez MD Height/Weight Height: 5 ft 11 in Weight: 87.1 kg Allergies Allergy/AdvReac Type Severity Reaction Status Date / Time No Known Allergies Allergy Unverified 08/23/21 19:02 Medications Home Medications Medication Instructions Recorded Confirmed Last Taken hyoscyamine sulfate 0.125 mg tablet 0.125 mg PO BID PRN 08/23/21 08/23/21 08/23/21 06:00 Active Medications Generic Name Dose Route Start Last Admin Trade Name Freq PRN Reason Stop Dose Admin Enoxaparin Sodium 40 mg 08/24/21 02:00 08/24/21 02:35 Enoxaparin Inj 40 Mg/0.4 Ml Syr SQ 09/23/21 01:59 40 mg HS FOREIGN Administration Hydromorphone HCl 0.5 mg 08/24/21 01:31 08/24/21 02:35 Hydromorphone Inj 0.5 Mg/0.5 Ml Syr IV 09/07/21 01:30 0.5 mg Q3H PRN Administration Pain (6,7,8,9,10) Lactated Ringer's 1,000 mls @ 100 mls/hr 08/24/21 01:31 08/24/21 01:31 Lr IV 09/23/21 01:30 100 mls/hr .Q10H FOREIGN Administration Piperacillin Sod/Tazobactam 115 mls @ 28.75 mls/hr 08/24/21 07:00 08/24/21 07:26 Sod 3.375 gm/ Dextrose IV 09/03/21 06:59 28.8 mls/hr Q8H FOREIGN Administration Protocol NPO Date Last Intake of Fluids: 08/23/21 Time Last Intake of Fluids: 12:00 Date Last Intake of Solids: 08/21/21 Time Last Intake of Solids: 23:59 Past Medical History Medical History Acute cholecystitis Smoker Exercise / Class Metabolic Activity II 4-5 Yardwork/Stairs/Walk up hill Past Surgical History Surgical History (Updated 08/24/21 @ 07:32 by Vivek Smith MD) S/P removal of ovarian cyst Past Anesthesia History No Hx of Anesthesia Complications and No Family Hx of Anesthesia Complications History of PONV No Hx of PONV and No Hx of Motion Sickness Social History Smoking Status: Current every day smoker tobacco type: cigarettes Smoking cigarettes per day: 12 Do You Dip or Chew Tobacco: No Hx Alcohol Use: Yes alcohol intake frequency: holidays/special occasions only Hx Substance Use: No Physical Exam Vital Signs Last Vital Signs Temp 36.6 C 08/24/21 07:23 Pulse 97 H 08/24/21 07:23 Resp 18 08/24/21 07:23 BP 118/70 08/24/21 07:23 Pulse Ox 93 08/24/21 07:23 Testing Laboratory Results 08/23/21 15:50 08/23/21 15:50 Urine Color [place] 08/23/21 15:50 Urine Appearance Clear (Clear) 08/23/21 15:50 Urine pH 5.5 (4.5-7.5) 08/23/21 15:50 Ur Specific [place] 1.017 (1.000-1.030) 08/23/21 15:50 Urine Protein Negative (Negative) 08/23/21 15:50 Urine Glucose (UA) Negative (Negative) 08/23/21 15:50 Urine Ketones 2+ (Negative) H 08/23/21 15:50 Urine Nitrite Negative (Negative) 08/23/21 15:50 Ur Leukocyte Esterase Negative (Negative) 08/23/21 15:50 Urine WBC (Auto) 1-5 /hpf (0-5) 08/23/21 15:50 Urine RBC (Auto) 0-4 /hpf (0-4) 08/23/21 15:50 U Hyaline Cast (Auto) 1-5 /lpf (0-5) 08/23/21 15:50 U Epithel Cells (Auto) 20-30 /lpf (0-5) H 08/23/21 15:50 Urine Bacteria (Auto) Negative (Negative) 08/23/21 15:50
[2021-08-24] MEDS ORDERED: HYDROmorphone INJ 1 MG/ML SYRINGE IV PRN (07:32)
[2021-08-24] MEDS ORDERED: ATROPINE SULFATE 0.1 MG/ML 10ML SYR IV PRN (07:32)
[2021-08-24] MEDS ORDERED: ONDANSETRON INJ 2 MG/ML 2 ML VIAL IV PRN (07:32)
[2021-08-24] MEDS ORDERED: ePHEDrine sulfate 50 MG/ML AMP IV PRN (07:32)
[2021-08-24] MEDS ORDERED: fentaNYL citrate 100 MCG/2 ML VIAL IV PRN (07:32)
[2021-08-24] MEDS ORDERED: NEOSTIGMINE METHYLSULFATE 1 MG/ML 10ML VIAL ONE (08:24)
[2021-08-24] MEDS ORDERED: GLYCOPYRROLATE 0.2 MG/ML VIAL ONE (08:24)
[2021-08-24] MEDS ORDERED: PHENYLEPHRINE 100MCG/ML 5ML SYR ONE (08:24)
[2021-08-24] MEDS ORDERED: SURGICEL ABSORB HEMOSTAT 2IN X 14IN TOP ONE (08:42)
--- NOTE | 2021-08-24 08:55 | Post Operative Brief Note ---
Immediate Post Op Note v1 Date of Surgery August 24, 2021 Pre & Post Diagnosis Operation Date: 08/24/21 07:00 Pre-Op Diagnosis: ACUTE CHOLECYSTITIS Post-Op Diagnosis: ACUTE CHOLECYSTITIS I identified the patient and participated in the time-out.: Yes Procedure Operation Date: 08/24/21 07:00 Actual Procedures p Laparoscopic Cholecystectomy - Anthony Hernandez MD Surgeon Anthony Hernandez MD Solution Director Lauren, assisted with tissue retraction, camera operation, skin closure Estimated Blood Loss 10 Findings Consistent with Post-Op Diagnosis Acute cholecystitis, hydrops of the gallbladder, severe acute inflammation with adhesions of the omentum to the gallbladder. Anesthesia Type General Complications No immediate complications
--- NOTE | 2021-08-24 08:59 | Operative Report ---
Post Operative Report Pre & Post Diagnosis Operation Date: 08/24/21 07:00 Pre-Op Diagnosis: ACUTE CHOLECYSTITIS Post-Op Diagnosis: ACUTE CHOLECYSTITIS I identified the patient and participated in the time-out.: Yes Procedure Operation Date: 08/24/21 07:00 Actual Procedures p Laparoscopic Cholecystectomy - Anthony Hernandez MD Surgeon Anthony Hernandez MD Corporate Law Assistant Lauren, assisted with tissue retraction, camera operation, skin closure Estimated Blood Loss 10 Findings Consistent with Post-Op Diagnosis Specimens Gallbladder Anesthesia Type General Complications No immediate complications Indications Acute cholecystitis Description of Procedure The patient was taken to the operating room, and placed supine on the operating table. A timeout was performed, perioperative antibiotics were administered, SC D boots were placed. After adequate anesthesia and analgesia was obtained, the abdomen was prepped and draped in the normal sterile fashion. Local anesthetic was injected into and around the proposed incision sites. An incision was made with a 15 blade scalpel in the supraumbilical region and carried down to the level of the fascia. The fascia was grasped with a trach hook, and a varies needle was used to enter the abdominal cavity. The abdomen was insufflated to a pressure of 15 mmHg, and a 11 mm trocar was placed in this location. A 10 mm, 30 degree laparoscope was placed into the abdominal cavity, and the abdomen was surveyed. The gallbladder was very distended and thick- walled. There is reactive murky fluid above the liver. Omental adhesions were present to the gallbladder. Two 5 mm trochars were placed along the right costal margin, and one 5 mm trocar was placed in the subxiphoid region under direct visualization. The gallbladder was drained with an 18-gauge aspiration needle of clear fluid. The gallbladder was then grasped and retracted cephalad and laterally, exposing the triangle of [place]. Dissection began in the triangle with a combination of blunt dissection with the [place] dissector, and judicious use of the hook cautery. The cystic duct and cystic artery were dissected free circumferentially, and a critical view of safety was obtained. The cystic duct and cystic artery were clipped and transected, and the gallbladder was removed from the gallbladder fossa with the hook cautery. The camera was switched to a 5 mm, the gallbladder was placed in an Endo Catch bag, and removed via the supraumbilical port site. The camera was switched back to the 10 mm camera, and the abdomen was surveyed again. Hemostasis was checked and attended. Bleeding in the liver bed was arrested with cautery and a piece of Surgicel. The abdomen was copiously irrigated and suctioned free. Again hemostasis was checked and was excellent. All trochars were removed under direct visualization. The abdomen was desufflated. The fascia in the 11 mm port site was closed with a 0 Vicryl suture. The skin was closed with a running 4-0 Monocryl subcuticular stitch. D ermabond was applied. The patient tolerated the procedure without complication, and was transferred in stable condition to the PACU. All instrument, needle, and sponge counts were correct at the end of the case. I attest to the content of the Intraoperative Record and any orders documented therein. Any exceptions are noted below.
[2021-08-24] MEDS: oxyCODONE/ACETAMINOPHEN 5mg/325mg TAB PO PRN ×3 (10:17→22:27)
--- NOTE | 2021-08-24 13:53 | Anesthesiology Progress Note ---
Date of Service August 24, 2021 Anesthesia Post Procedure Vital Signs Vital Signs: Temp Pulse Pulse Pulse Resp BP Pulse Ox 08/24/21 13:03 36.6 C 101 H 16 113/63 93 08/24/21 12:00 36.6 C 105 H 16 113/70 93 08/24/21 11:00 36.9 C 85 16 129/75 94 08/24/21 10:30 36.6 C 77 16 124/75 93 08/24/21 10:00 36.9 C 73 16 117/84 94 08/24/21 09:40 36.6 C 73 13 110/64 95 08/24/21 09:30 81 14 105/62 95 08/24/21 09:20 80 20 108/58 L 98 08/24/21 09:10 36.9 C 91 H 18 112/67 99 08/24/21 07:23 36.6 C 97 H 18 118/70 93 08/24/21 07:04 36.7 C 95 H 16 120/73 93 08/24/21 01:30 36.6 C 101 H 18 112/74 93 08/24/21 00:40 87 18 08/24/21 00:30 89 21 08/24/21 00:20 90 23 08/24/21 00:10 91 H 19 08/24/21 00:00 90 18 08/23/21 23:50 98 H 20 08/23/21 23:40 90 17 08/23/21 23:30 90 19 08/23/21 23:20 89 22 08/23/21 21:19 95 H 20 98 08/23/21 18:39 102 H 102 H 16 114/67 98 Pulse Ox 08/24/21 13:03 08/24/21 12:00 08/24/21 11:00 08/24/21 10:30 08/24/21 10:00 08/24/21 09:40 08/24/21 09:30 08/24/21 09:20 08/24/21 09:10 08/24/21 07:23 08/24/21 07:04 08/24/21 01:30 101 H 08/24/21 00:40 08/24/21 00:30 08/24/21 00:20 08/24/21 00:10 08/24/21 00:00 08/23/21 23:50 09/28/21 23:40 08/23/21 23:30 08/23/21 23:20 08/23/21 21:19 08/23/21 18:39 Pain Intensity Back: Pain Intensity: 0 Abdomen: Pain Intensity: 8 Transfer of Care Handoff Completed per policy Notes Mental Status: alert / awake / arousable and participated in evaluation Patient Amnestic to Procedure: Yes Nausea / Vomiting: adequately controlled Pain: adequately controlled Airway Patency, RR, SpO2: stable & adequate BP & HR: stable & adequate Hydration State: stable & adequate Anesthetic Complications: no major complications apparent and Pt Satisfied with anesthetic care
[2021-08-25] MEDS: LACTATED RINGER'S 1,000 ML IV SCH (01:28)
--- NOTE | 2021-08-25 05:08 | Electrocardiogram Report ---
Test Reason : Blood Pressure : / mmHG Vent. Rate : 103 BPM Atrial Rate : 103 BPM P-R Int : 162 ms QRS Dur : 074 ms QT Int : 332 ms P-R-T Axes : 053 -28 026 degrees QTc Int : 434 ms Poor data quality, interpretation may be adversely affected Sinus tachycardia Septal infarct , age undetermined Abnormal ECG No previous ECGs available Confirmed by Osmar Navarro ([id number]) on 08/25/2021 5:07:37 AM Referred By: REFERRED SELF Confirmed By:Osmar Navarro
--- NOTE | 2021-08-25 05:17 | Electrocardiogram Report ---
Test Reason : Blood Pressure : / mmHG Vent. Rate : 089 BPM Atrial Rate : 089 BPM P-R Int : 184 ms QRS Dur : 074 ms QT Int : 360 ms P-R-T Axes : 048 -07 043 degrees QTc Int : 438 ms Normal sinus rhythm Low voltage QRS Cannot rule out Anteroseptal infarct (cited on or before 23-AUG-2021) Abnormal ECG When compared with ECG of 23-AUG-2021 15:39, Questionable change in initial forces of Anterior leads T wave amplitude has decreased in Anterior leads Confirmed by Osmar Navarro ([id number]) on 08/25/2021 5:17:04 AM Referred By: REFERRED SELF Confirmed By:Osmar Navarro
[2021-08-25] MEDS: PIPERACILLIN/TAZOBACTAM 3.375 GM in DEXTROSE 5% 100 ML IV SCH (06:16)
[2021-08-25 07:57] LABS: Basophils # (auto) 0.01 K/uL (0-0.2); Basophils % (auto) 0.1 %; Eosinophils # (auto) 0.01 K/uL (0-0.5); Eosinophils % (auto) 0.1 %; Hematocrit (blood only) 33.6 % (37-47); Hemoglobin 11.2 g/dL (12.0-16.0); Immature Granulocytes # (auto) 0.02 K/uL (0.00-0.02); Immature Granulocytes % (auto) 0.2 %; Lymphocytes # (auto) 1.57 K/uL (1.2-3.4); Lymphocytes % (auto) 15.1 %; Mean Corpuscular Hemoglobin 28.9 pg (25-34); Mean Corpuscular Hgb Conc 33.3 g/dL (32-36); Mean Corpuscular Volume 86.8 fL (80-100); Mean Platelet Volume 10.9 fL (7.4-10.4); Monocytes # (auto) 0.92 K/uL (0.11-0.59); Monocytes % (auto) 8.8 %; Neutrophils # (auto) 7.89 K/uL (1.4-6.5); Neutrophils % (auto) 75.7 %; Platelet Count 180 K/uL (130-400); RDW Coefficient of Variation 13.6 % (11.5-14.5); RDW Standard Deviation 43.6 fL (36.4-46.3); Red Blood Count 3.87 M/uL (4.2-5.4); White Blood Count 10.42 K/uL (4.8-10.8)
[2021-08-25 08:34] LABS: Albumin Globulin Ratio 0.6 (0.9-2); Albumin Level 2.5 gm/dl (3.4-5.0); BUN Creatinine Ratio 9.7 (10-20); Bilirubin,Total 0.6 mg/dl (0.2-1); Calcium 8.6 mg/dl (8.5-10.1); Creatinine Clr Calc Pharmacy 115.1 ml/min; Est GFR (African American) 115.2 ml/min; Est GFR (Non-African American) 99.4 ml/min; Globulin 3.9 gm/dl (2.5-4.0); Potassium 3.7 mmol/L (3.5-5.1); Total Protein 6.4 gm/dl (6.4-8.2)
[2021-08-25] MEDS ORDERED: ACETAMINOPHEN 325 MG TAB PO PRN (09:03)
[2021-08-25] MEDS ORDERED: IBUPROFEN 600 MG TAB PO PRN (09:03)
--- NOTE | 2021-08-25 12:27 | Discharge Summary ---
Date of Service August 25, 2021 Admission HPI Per Admitting Provider 55-year-old woman who presents with 2-day history of right upper quadrant pain, progressing to epigastric and back pain up to the right shoulder. She has had some chills with this pain. Positive nausea, no vomiting. She denies acholic stools, dark urine, pruritus, jaundice. She was seen in another emergency room yesterday, and ultrasound was done which demonstrated a "bad gallbladder ". She was sent home to contact her surgeon. The pain worsened this morning and she came to the ER here. A CT scan demonstrates a distended gallbladder with significant inflammation and pericholecystic fluid. Principal Diagnosis Acute calculous cholecystitis Discharge Exam Constitutional WD/WN, vitals as above no acute distress and not ill appearing Respiratory normal respiratory effort; no respiratory distress, no labored breathing and no retractions Gastrointestinal (Abdomen) Inspection/Auscultation: abdomen normal to inspection and + abdominal surgical incision (clean,dry,intact, with dermabond); abdomen not distended Percussion/Palpation: + abdomen tender (at incision sites) and abdomen soft; no guarding and abdomen not rigid Skin no rashes, warm and dry Psychiatric A+Ox3, euthymic affect Discharge Data Allergies Allergy/AdvReac Type Severity Reaction Status Date / Time No Known Allergies Allergy Unverified 08/23/21 19:02 Consultations 08/23/21 20:32 Consult General Surgery Stat Procedures Performed Operation Date: 08/24/21 07:00 Actual Procedures p Laparoscopic Cholecystectomy - Anthony Hernandez MD Ordered Studies 08/23/21 18:29 CT abd pelvis IV con only Stat Hospital Course (1) Acute cholecystitis: Patient was taken to operating room for laparoscopic cholecystectomy by Dr. Hernandez. Patient found to have acute calculous cholecystitis with large gallstone and inflamed gallbladder. Patient tolerated procedure well and was transferred to recovery then to medical/surgical floor for postoperative care. IV fluids, IV zosyn, regular diet, IV morphine with PO PErcocet prn pain, activity as tolerated were her postop orders. POD # 1, afebrile, vitals stable. Patient tolerated regular diet, pain controlled with oral pain medications, no nausea or vomiting, urinating without difficulty. Labs showed improvement of leukocytosis and t. bili and lfts wnl. Patient was discharged home on POD # 1 in stable condition. Total Time Total Time Spent Total Time Spent (In Minutes): 30 Total Time Includes: Examination of the Patient, Discharge Planning and Medication Reconciliation Discharge Plan Discharge Items Patient Disposition: Home - Self-Care Reason For Visit: ACUTE CHOLECYSTITIS Discharge Diagnosis: Acute calculous cholecystitis Activity: Per Instructions section Non-emergency contact: Surgeon Call non-emergency contact if: you have any medication questions, your pain is not controlled, your pain is worsening, your pain is concerning for you, you have a fever, your temperature is above 101, your wound has increased redness, your wound has increased drainage and your wound pain has increased Follow-up/Referrals: Anthony Hernandez MD [Physician] - (Follow-up with Dr. Hernandez end of next week . Please call office at [phone] to make an appointment) Olga Thomas M.D. [Primary Care Provider] - 08/29/21 1:00 pm Diet: Regular Addtl Attending Provider Instructions: Post-Surgical ~Discharge Instructions Activity Recommendations: - lifting limitation: (20 pounds for 2 weeks), - exercise/sex/sports limit: (nonstrenuous for 2 weeks), - driving or machine use limit: (none for 1 week, until pain free, or no longer taking narcotic pain medication), - Shower/bathe limit: (may shower) Diet: - Resume previous diet SPECIAL CARE INSTRUCTIONS: - May shower. Let water run over area and pat dry. Do Not submerge incisions underwater for 2 weeks (no bathing, swimming, hot tubs) - Surgical glue will fall off on its own. - Call the surgeon's office with any questions or concerns - - (ex. temperature higher than 101 degrees F, excessive bleeding or pain). MEDICATIONS: - Resume previous medications unless instructed otherwise by your surgeon. - May alternate extra strength Tylenol and Ibuprofen as needed for mild pain -650 mg Tylenol every 6 hours as needed - Ibuprofen 600 mg every 6 hours as needed (take with food) - Percocet 1 every 4 hours, as needed for moderate to severe pain - Recommend daily stool softener (Colace) while taking narcotic pain medication to prevent constipation or straining. FOLLOW UP VISIT: - If not already scheduled, please call the office to schedule a one week follow-up appointment. Office number Pending Studies at Discharge: Yes (gallbladder pathology) Stand-Alone Forms: [facility], Smoking Cessation Medications and DC Order Prescriptions: New oxycodone-acetaminophen [Percocet] 5-325 mg tablet 1 tab PO Q4H PRN (Reason: pain) Qty: 5 RF: 0 Continued hyoscyamine sulfate 0.125 mg Tablet 0.125 mg PO BID PRN (Reason: Bladder Spasms) RF: 0 Discharge Orders: Discharge Order (Routine); Ordered 08/25/21 Ordered By: Ana Laura Tolentino/Other Patient Handouts: After Gallbladder Surgery, Cholecystectomy Laparoscopic Dc Admission Data Admit Date/Time: 08/23/21 22:02 Attending Provider: Anthony Hernandez Admit Provider: Anthony Hernandez Primary Care Provider: Olga Thomas Other Providers: Anthony Hernandez Other Interventions: Discharge Summary Assessment (RN) Last Done: 08/25/21 11:30
== END 2021-08-25 12:39 | disposition home or self-care (01) ==
LOC: ED 13:08 → 3N 13:08

== ENCOUNTER 2022-11-13 05:25 | Observation (INO) ==
[2022-11-13] MEDS ORDERED: ASPIRIN 81 MG CHEW PO STA (05:53)
[2022-11-13] MEDS ORDERED: ALBUT/IPRATROP 3MG/0.5MG NEB 3 ML VIAL NEB ONE (05:53)
[2022-11-13] MEDS ORDERED: dexAMETHasone**PF** 10 MG/ML VIAL IV ONE (05:53)
--- NOTE | 2022-11-13 05:56 | Emergency Department Note ---
Impression & Plan Bronchitis, Chest pain, Elevated d-dimer ED Provider Note Name: AMEENA DURAN Age: 57 Sex: F Arrives Via: Walk-In Informant: Patient ED Provider: Chest pain Chief Complaint: Chest pain Impression: As per impressions above Medical Decision Makin-year-old female without significant past medical history though is a long- term smoker and has extensive past family history of cardiac disease. Patient arrives for evaluation of 2 to 3 days of upper respiratory illness and then developing increasing substernal chest pain over the last day worsening this mo rning. On examination she is somewhat uncomfortable but of significant concern is diffuse wheezing all lung bhardwaj. She was given an hour-long nebulizer along with some IV Decadron. She does appear to be breathing more comfortably following neb and her chest pain is starting to relieve. She had been given some aspirin as well. Given some continued mild chest pain she was given a single dose of nitro. Her chest x-ray is unremarkable. EKG without ischemia nor other concerning findings. It was repeated and continues to be similar. Her D-dimer is significantly elevated. In the setting of respiratory distress and chest pain with an elevated dimer I did not feel that getting a CT was ind icated. CT of the chest with angio was pending at signout to Dr. Lovett. Also pending was her initial troponin which was taking some time in the lab. I discussed the plan with the patient and she is agreeable to await these findings but is aware that following these likely hospitalization would be indicated given the amount of chest pain she was having with her risk factors. Prior Medical Record and Triage/Nursing Notes reviewed by Me Additional history obtained from chart Differentials:Cardiac ischemia, aortic dissection, pulmonary embolism, pneumothorax, pneumonia, pericarditis, myocarditis, esophageal rupture, GERD, cholecystitis, pancreatitis, musculoskeletal, as well as other pathologies. Vital Signs: reviewed and remarkable for no significant abnormalities Interventions: DuoNeb, Decadron IV, aspirin 324 mg p.o., sublingual nitro Labs:Reviewed and remarkable for elevated D-dimer Imaging:X ray results are stated below per my interpretation: Chest: 1 view: No infiltrate, no effusion, normal cardiac border. EKG:As per my interpretation. Indication chest pain. Normal sinus rhythm at 91 bpm and a QTC of 410. There is no ectopy nor ischemia. Questionable pulmonary disease pattern. When compared to EKG from August 15, 2021 there is no significant change. Plan: Disposition:Signed out to Dr. Lovett pending CT imaging and troponin Condition: Good History of Present Illness:57-year-old female arrives for evaluation of chest pain. Patient notes 3 to 4 days of illness. Associated runny nose, congestion and cough. She admits that her wheezing has been increasing. Over the last 24 hours though she started develop substernal chest pain. Pain is pressure-like and dull. Sometimes radiates through to her left shoulder. No nausea, vomiting, syncope. She does note some shortness of breath but is not feeling like she cannot catch her breath. She has no recent calf pain or leg swelling or any history of DVT or PE. She had no recent surgeries or prolonged car trips. Patient notes that she has several grandchildren that are sick currently as well. Patient has no history of CAD or cardiac issues that both her parents had heart attacks and around 55 years of age. No medication prior to arrival. Nothing seems to make this better or worse. Pain is been relatively constant but does come and go at times. ROS: See above HPI for pertinent positives & negatives. A total of 10 systems reviewed and were otherwise negative. Past Medical History:COPD - see below Past Surgical History:Ovarian cyst - see below Family History:Both parents had MIs in their 50s - see below Social History:See Below Home Medications:See Below Allergies:neulasta Vitals:Blood Pressure: 149/81, Pulse 99, RR 20, T 36.6C, O2 94% on RA Physical Exam: GENERAL: Patient is well appearing and in mild distress. EYES: No scleral icterus, unremarkable pupils. ENT: Mucous membranes moist, no nasal congestion. NECK: No masses appreciated, nomeningismus, trachea is midline. RESPIRATORY: Mild dyspnea/tachypnea with diffuse tight lung sounds and inspiratory and expiratory wheezing and junky crackles at bases. CARDIOVASCULAR: Regular rate and rhythm.No murmurs, rubs, gallops appreciated. GASTROINTESTINAL: Abdomen soft, non-tender, no peritonitis.Bowel sounds positive.No masses appreciated. BACK: No midline tenderness, no CVA tenderness EXTREMITIES: Normal motion all extremities, no cyanosis, no edema. NEUROLOGIC: Alert and oriented, no acute motor or sensory deficits, no focal weakness, cranial nerves grossly intact. SKIN: No rash, no jaundice, no diaphoresis. PSYCH: Appropriate GCS: 15 ED Course: Times/Reassessments: Patient doing much better after nebulizer still mild chest pain was given a small dose of nitro. She is agreeable to hospitalization pending CT findings and troponin. Joseph Braun MD Past Med/Surg History Medical History History of COVID-19 suspected covid-19. family tested positive 11/22/21. patient did not test. patient did experience sinus congestion, loss of taste and smell, sob, N/V, fever and chills starting 11/21/21. no current symptoms. History of fracture of right ankle Hodgkins lymphoma treated with chemotherapy, treated at [facility] in [place]. dx ~2012 Hx of colonic polyps Surgical History H/O lymph node biopsy H/O oral surgery salivary gland removal H/O vaginal hysterectomy History of cholecystectomy History of colonoscopy History of surgery port placement + port removal. 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 Beliefs That Will Affect Care: None Current Living Situation: Spouse Feels Safe at Home: Yes Safety Concerns: Feels Safe At This Time Assistive Devices: Glasses Assistive Devices Comment: dentures Allergies Allergies Allergy/AdvReac Type Severity Reaction Status Date / Time pegfilgrastim [From Neulasta] Allergy Severe Anaphylaxis Verified 03/02/22 13:42 adhesive tape Allergy Mild blisters Verified 03/02/22 13:42 and redness Home Meds Home Medications Medication Instructions Recorded Confirmed ascorbic acid (vitamin C) 500 mg 500 mg PO QAM 12/28/21 11/13/22 capsule,extended release (Vitamin C) elderberry fruit 200 mg capsule 200 mg PO QAM 12/28/21 11/13/22 garlic 500 mg capsule 500 mg PO QAM 12/28/21 11/13/22 omega-3 fatty acids 1,000 mg PO QAM 12/28/21 11/13/22 turmeric 400 mg capsule 400 mg PO QAM 12/28/21 11/13/22 vitamin E 400 unit tablet 800 mg PO QAM 12/28/21 11/13/22 cholecalciferol (vitamin D3) 125 250 mcg PO DAILY 11/13/22 11/13/22 mcg (5,000 unit) tablet (Vitamin D3) coenzyme Q10 100 mg capsule (Co 100 mg PO DAILY 11/13/22 11/13/22 Q-10) diclofenac sodium 100 mg 100 mg PO DAILY PRN Pain 11/13/22 11/13/22 tablet,extended release 24 hr fluticasone furoate 100 1 inh inhalation DAILY 11/13/22 11/13/22 mcg-vilanterol 25 mcg/dose inhalation powder (Breo Ellipta) jace root extract 50 mg tablet 50 mg PO DAILY 11/13/22 11/13/22 Results & Data (ED) Vital Signs Vital Signs - 24 hr 11/13/22 05:27 11/13/22 06:00 11/13/22 06:23 Temperature 36.6 C Temperature Source Temporal Artery Scan Pulse Rate 99 H 79 Pulse Rate [Apical] 73 Pulse Rhythm [Apical] Pulse Strength [Apical] Respiratory Rate 20 15 20 Respiratory Effort / Characteristics Spontaneous Respiratory Depth Respiratory Pattern Blood Pressure 149/81 H 130/79 Blood Pressure [Right Arm] Blood Pressure Mean 103 96 Blood Pressure Mean [Right Arm] Blood Pressure Position Sitting Blood Pressure Position [Right Arm] Pulse Oximetry 94 94 93 Oxygen Delivery Method Room Air Room Air Room Air Sepsis Recent Fever Within 48 Hours No Sepsis New/Unexplained Change in Mental Status N/A Sepsis Action Taken by Nursing No Action Required 11/13/22 06:37 11/13/22 06:30 11/13/22 07:00 Temperature Temperature Source Pulse Rate 74 Pulse Rate [Apical] 92 H Pulse Rhythm [Apical] Regular Pulse Strength [Apical] Normal Respiratory Rate 14 18 Respiratory Effort / Characteristics Spontaneous Short of Breath Non-Labored Respiratory Depth Normal Respiratory Pattern Regular Blood Pressure 126/77 Blood Pressure [Right Arm] 126/75 Blood Pressure Mean 93 Blood Pressure Mean [Right Arm] 92 Blood Pressure Position Blood Pressure Position [Right Arm] Pulse Oximetry 97 Oxygen Delivery Method Room Air Sepsis Recent Fever Within 48 Hours Sepsis New/Unexplained Change in Mental Status Sepsis Action Taken by Nursing 11/13/22 09:00 11/13/22 07:00 11/13/22 07:00 Temperature 36.6 C Temperature Source Oral Pulse Rate Pulse Rate [Apical] 90 93 H Pulse Rhythm [Apical] Regular Regular Pulse Strength [Apical] Normal Normal Respiratory Rate 18 18 Respiratory Effort / Characteristics Non-Labored Non-Labored Spontaneous Non-Labored Spontaneous Respiratory Depth Normal Normal Normal Respiratory Pattern Regular Regular Regular Blood Pressure Blood Pressure [Right Arm] 88/62 L 146/78 H Blood Pressure Mean Blood Pressure Mean [Right Arm] 70 100 Blood Pressure Position Blood Pressure Position [Right Arm] Sitting Sitting Pulse Oximetry 94 95 Oxygen Delivery Method Room Air Room Air Room Air Sepsis Recent Fever Within 48 Hours Sepsis New/Unexplained Change in Mental Status Sepsis Action Taken by Nursing Laboratory Data Result diagrams: 11/13/22 05:35 11/13/22 05:35 Lab Results 11/13/22 11/13/22 11/13/22 Range/Units 05:35 05:35 05:35 WBC 7.15 (4.8-10.8) K/ul RBC 4.83 (3.93-5.22) M/uL Hgb 14.1 (12.0-16.0) g/dl Hct 41.9 (34.1-44.9) % MCV 86.7 (80.0-100.0) fL MCH 29.2 (25.0-34.0) pg MCHC 33.7 (32.0-36.0) g/dL RDW Std Deviation 42.2 (36.4-46.3) fL RDW Coeff of Barbara 13.3 (11.5-14.5) % Plt Count 174 (130-400) K/uL MPV 10.7 (9.4-12.3) fL Immature Gran % (Auto) 0.1 % Neut % (Auto) 59.6 % Lymph % (Auto) 28.1 % Fergus % (Auto) 9.1 % Eos % (Auto) 2.5 % Baso % (Auto) 0.6 % Neut # (Auto) 4.26 (1.4-6.5) K/uL Lymph # (Auto) 2.01 (1.2-3.4) K/uL Fergus # (Auto) 0.65 (0.24-0.82) K/uL Eos # (Auto) 0.18 (0-0.50) K/uL Baso # (Auto) 0.04 (0-0.2) K/uL Immature Gran # (Auto) 0.01 (0.00-0.02) K/uL PT 10.9 (9.0-12.0) Seconds INR 1.0 (0.9-1.1) APTT 31.3 H (21.0-31.0) Seconds PTT Ratio 1.1 D-Dimer 760 H* (0-500) ug/L FEU Sodium 139 (136-145) mmol/L Potassium 3.6 (3.5-5.1) mmol/L Chloride 103 (98-107) mmol/L Carbon Dioxide 30 (21-32) mmol/L Anion Gap 6 (3-11) BUN 10 (6-23) mg/dl Creatinine 0.75 (0.6-1.2) mg/dl Est Cr Clr Drug Dosing 100.4 ml/min Est GFR ( Amer) 104.0 ml/min Est GFR (Non-Af Amer) 89.7 ml/min BUN/Creatinine Ratio 13.3 (10-20) Glucose 91 (70-99(Fasting)) mg/dl Calcium 8.6 (8.5-10.1) mg/dl Total Bilirubin 0.8 (0.2-1.0) mg/dl AST 31 (13-39) U/L ALT 48 (7-52) U/L Alkaline Phosphatase 93 (34-104) U/L Troponin I High Sens 3.2 (0-14) pg/ml Total Protein 7.4 (6.0-8.3) gm/dl Albumin 4.3 (3.4-5.0) gm/dl Globulin 3.1 (2.5-4.0) gm/dl Albumin/Globulin Ratio 1.4 (0.9-2) SARS-CoV-2 (PCR) (Negative) Influenza Type A (PCR) (Neg) Influenza Type B (PCR) (Neg) RSV (RT-PCR) (Neg) 11/13/22 Range/Units 06:10 WBC (4.8-10.8) K/ul RBC (3.93-5.22) M/uL Hgb (12.0-16.0) g/dl Hct (34.1-44.9) % MCV (80.0-100.0) fL MCH (25.0-34.0) pg MCHC (32.0-36.0) g/dL RDW Std Deviation (36.4-46.3) fL RDW Coeff of Barbara (11.5-14.5) % Plt Count (130-400) K/uL MPV (9.4-12.3) fL Immature Gran % (Auto) % Neut % (Auto) % Lymph % (Auto) % Fergus % (Auto) % Eos % (Auto) % Baso % (Auto) % Neut # (Auto) (1.4-6.5) K/uL Lymph # (Auto) (1.2-3.4) K/uL Fergus # (Auto) (0.24-0.82) K/uL Eos # (Auto) (0-0.50) K/uL Baso # (Auto) (0-0.2) K/uL Immature Gran # (Auto) (0.00-0.02) K/uL PT (9.0-12.0) Seconds INR (0.9-1.1) APTT (21.0-31.0) Seconds PTT Ratio D-Dimer (0-500) ug/L FEU Sodium (136-145) mmol/L Potassium (3.5-5.1) mmol/L Chloride (98-107) mmol/L Carbon Dioxide (21-32) mmol/L Anion Gap (3-11) BUN (6-23) mg/dl Creatinine (0.6-1.2) mg/dl Est Cr Clr Drug Dosing ml/min Est GFR ( Amer) ml/min Est GFR (Non-Af Amer) ml/min BUN/Creatinine Ratio (10-20) Glucose (70-99(Fasting)) mg/dl Calcium (8.5-10.1) mg/dl Total Bilirubin (0.2-1.0) mg/dl AST (13-39) U/L ALT (7-52) U/L Alkaline Phosphatase (34-104) U/L Troponin I High Sens (0-14) pg/ml Total Protein (6.0-8.3) gm/dl Albumin (3.4-5.0) gm/dl Globulin (2.5-4.0) gm/dl Albumin/Globulin Ratio (0.9-2) SARS-CoV-2 (PCR) NEGATIVE (Negative) Influenza Type A (PCR) Negative (Neg) Influenza Type B (PCR) Negative (Neg) RSV (RT-PCR) Negative (Neg) Administered Medications Discontinued Medications Albuterol (Albut/Ipratrop 3mg/0.5mg Neb 3 Ml Vial) 12 ml NEB ONE ONE; Protocol Stop: 11/13/22 05:54 Last Admin: 11/13/22 06:22 Dose: 12 ml Documented By: KRISTOPHER Aspirin (Aspirin 81 Mg Chew) 324 mg PO NOW STA Stop: 11/13/22 05:54 Last Admin: 11/13/22 06:06 Dose: 324 mg Documented By: GALA Dexamethasone Sodium Phosphate (DexamethasonePf 10 Mg/Ml Vial) 10 mg IV NOW ONE Stop: 11/13/22 05:54 Last Admin: 11/13/22 06:06 Dose: 10 mg Documented By: GALA Ioversol (Optiray 320 500ml) 115 ml IV ONCE ONE Stop: 11/13/22 08:02 Last Admin: 11/13/22 08:01 Dose: 115 ml Documented By: EFREN Nitroglycerin (Nitroglycerin Sl 0.4 Mg/Tab Tab) 0.4 mg SL NOW STA Stop: 11/13/22 07:29 Last Admin: 11/13/22 07:43 Dose: 0.4 mg Documented By: AP Imaging Data Radiologist's Impression: Chest X-Ray 11/13/22 05:41 SINGLE VIEW CHEST CLINICAL HISTORY: Atypical chest pain. FINDINGS: An AP, portable, upright chest radiograph is compared to study dated 08/23/2021. The cardiomediastinal silhouette is unremarkable noting atherosclerotic calcification of the thoracic aorta. Mild emphysema and chronic interstitial thickening is similar to previous. There is bibasilar scarring/atelectasis. No airspace consolidation or large pleural effusion is identified. No pneumothorax is seen. The bony thorax is grossly intact. IMPRESSION: Moderate emphysema with no active disease in the chest. ACT 112: Negative or not required by law. Electronically signed by: Jose Tsai M.D. 11/13/2022 8:40 AM Chest CTA 11/13/22 07:26 CHEST CTA for PULMONARY ARTERIES CT DOSE: 383.99 mGy.cm HISTORY: Atypical chest pain. Elevated d-dimer. Shortness of breath. TECHNIQUE: Multiaxial CT images of the chest were performed following the intravenous administration of contrast to evaluate the pulmonary arteries. Maximal intensity projection images were also obtained. A dose lowering technique was utilized adhering to the principles of ALARA. COMPARISON STUDY: None. FINDINGS: Limited views of the upper abdomen demonstrate a normal spleen and adrenal glands. Prior cholecystectomy. There are few subcentimeter thyroid nodules which do not meet CT criteria for follow-up. Normal esophagus. No pleural or pericardial effusions. The heart is normal in size. No mediastinal or hilar lymphadenopathy. Normal caliber thoracic aorta with no evidence for a dissection. No filling defects within the pulmonary arteries to suggest a pulmonary embolus. No fractures within the visualized osseous structures. No pne umothorax. Mild bronchial wall thickening with a few partially opacified bilateral lower lobe bronchi. There is mild paraseptal emphysema. Biapical pleural-parenchymal densities are nonspecific but favor scarring. A 2 mm nodule within the left upper lobe on image 238. Bilateral lower lobe linear densities. IMPRESSION: 1. No evidence for a pulmonary embolus. 2. Bronchial wall thickening with partial opacification of the bilateral lower lobe bronchi. This may represent a mild bronchitis. 3. There is bilateral lower lobe linear densities which could be due to atelectasis or a low-grade pneumonitis. 4. No evidence for an aortic dissection. 5. A 2 mm left upper lobe pulmonary nodule. 6. Mild paraseptal emphysema. 7. Biapical densities are nonspecific but favor scarring. ACT 112: Negative or not required by law. Electronically signed by: Jh Chambers M.D. 11/13/2022 8:49 AM Discharge Plan Visit Data Chief Complaint: Chest Pain Stated Complaint: CHEST PAIN ED Provider: Shant Lovett Discharge Problem: Bronchitis, Chest pain, Elevated d-dimer Patient Disposition: Admitted As Inpatient Discharge Instructions Interventions: ED Discharge Assessment Last Done: 11/13/22 11:19 : Chest pain Qualifiers: Chest pain type: unspecified Qualified Code(s): R07.9 - Chest pain, unspecified
[2022-11-13 06:18] LABS: Basophils # (auto) 0.04 K/uL (0-0.2); Basophils % (auto) 0.6 %; Eosinophils # (auto) 0.18 K/uL (0-0.50); Eosinophils % (auto) 2.5 %; Hematocrit (blood only) 41.9 % (34.1-44.9); Hemoglobin 14.1 g/dl (12.0-16.0); Immature Granulocytes # (auto) 0.01 K/uL (0.00-0.02); Immature Granulocytes % (auto) 0.1 %; Lymphocytes # (auto) 2.01 K/uL (1.2-3.4); Lymphocytes % (auto) 28.1 %; Mean Corpuscular Hemoglobin 29.2 pg (25.0-34.0); Mean Corpuscular Hgb Conc 33.7 g/dL (32.0-36.0); Mean Corpuscular Volume 86.7 fL (80.0-100.0); Mean Platelet Volume 10.7 fL (9.4-12.3); Monocytes # (auto) 0.65 K/uL (0.24-0.82); Monocytes % (auto) 9.1 %; Neutrophils # (auto) 4.26 K/uL (1.4-6.5); Neutrophils % (auto) 59.6 %; Platelet Count 174 K/uL (130-400); RDW Coefficient of Variation 13.3 % (11.5-14.5); RDW Standard Deviation 42.2 fL (36.4-46.3); Red Blood Count 4.83 M/uL (3.93-5.22); White Blood Count 7.15 K/ul (4.8-10.8)
[2022-11-13 07:12] LABS: Albumin Globulin Ratio 1.4 (0.9-2); Albumin Level 4.3 gm/dl (3.4-5.0); BUN Creatinine Ratio 13.3 (10-20); Bilirubin,Total 0.8 mg/dl (0.2-1.0); Calcium 8.6 mg/dl (8.5-10.1); Creatinine Clr Calc Pharmacy 100.4 ml/min; Est GFR (Non-African American) 89.7 ml/min; Globulin 3.1 gm/dl (2.5-4.0); Potassium 3.6 mmol/L (3.5-5.1); Total Protein 7.4 gm/dl (6.0-8.3)
[2022-11-13 07:16] LABS: Partial Thromboplastin Ratio 1.1; Partial Thromboplastin Time 31.3 Seconds (21.0-31.0); Prothrombin Time 10.9 Seconds (9.0-12.0)
[2022-11-13 07:24] LABS: Influenza A virus by PCR Negative (Neg); Influenza B virus by PCR Negative (Neg); RSV by PCR Negative (Neg); SARS CoV2 RNA(COVID-19) Ceph NEGATIVE (Negative)
[2022-11-13 07:25] LABS: D Dimer 760 ug/L FEU (0-500)
[2022-11-13] MEDS ORDERED: NITROGLYCERIN SL 0.4 MG/TAB TAB SL STA (07:28)
--- NOTE | 2022-11-13 07:31 | Emergency Department Note ---
ED Visit Note I received signout pending CT angiography of the chest. The patient had presented with concern for substernal chest pain that she described as a pr essure. No improvement with nebulizer treatment. The patient did receive full dose aspirin was ordered nitro. Patient's blood work showed a normal white count H&H and platelet count. The patient's kidney function was unremarkable. Troponin pending. D-dimer elevated. D-dimer was elevated and thus the angiography was ordered. COVID flu and RSV negative. Signout per Dr. Braun was that he recommended that the patient be admitted for chest pain rule out as the patient CT angiography was negative. Still pending troponin as well as CT angiography at the time of signout at 7:30 AM EKG shows Q-wave in V2 no obvious ST elevations. Troponin is not elevated. CT angiography does not show any evidence of PE. I did speak the on-call hospitalist Rhoda Chamberlain PA-C and the patient was admi tted by Dr. Cardoso. Impression: Atypical chest pain .
[2022-11-13] MEDS ORDERED: OPTIRAY 320 500ml IV ONE (08:01)
[2022-11-13 08:32] LABS: Troponin I High Sensitivity 3.2 pg/ml (0-14)
--- NOTE | 2022-11-13 08:42 | XRay Report ---
SINGLE VIEW CHEST CLINICAL HISTORY: Atypical chest pain. FINDINGS: An AP, portable, upright chest radiograph is compared to study dated 08/23/2021. The cardiom ediastinal silhouette is unremarkable noting atherosclerotic calcification of the thoracic aorta. Mil d emphysema and chronic interstitial thickening is similar to previous. There is bibasilar scarring/a telectasis. No airspace consolidation or large pleural effusion is identified. No pneumothorax is see n. The bony thorax is grossly intact. IMPRESSION: Moderate emphysema with no active disease in the chest. ACT 112: Negative or not required by law. Electronically signed by: Jose Tsai M.D. 11/13/2022 8:40 AM
--- NOTE | 2022-11-13 08:51 | CT Scan Report ---
CHEST CTA for PULMONARY ARTERIES CT DOSE: 383.99 mGy.cm HISTORY: Atypical chest pain. Elevated d-dimer. Shortness of breath. TECHNIQUE: Multiaxial CT images of the chest were performed following the intravenous administration of contrast to evaluate the pulmonary arteries. Maximal intensity projection images were also obtaine d. A dose lowering technique was utilized adhering to the principles of ALARA. COMPARISON STUDY: None. FINDINGS: Limited views of the upper abdomen demonstrate a normal spleen and adrenal glands. Prior ch olecystectomy. There are few subcentimeter thyroid nodules which do not meet CT criteria for follow-u p. Normal esophagus. No pleural or pericardial effusions. The heart is normal in size. No mediastinal or hilar lymphadenopathy. Normal caliber thoracic aorta with no evidence for a dissection. No fillin g defects within the pulmonary arteries to suggest a pulmonary embolus. No fractures within the visua lized osseous structures. No pneumothorax. Mild bronchial wall thickening with a few partially opacif ied bilateral lower lobe bronchi. There is mild paraseptal emphysema. Biapical pleural-parenchymal de nsities are nonspecific but favor scarring. A 2 mm nodule within the left upper lobe on image 238. Bi lateral lower lobe linear densities. IMPRESSION: 1. No evidence for a pulmonary embolus. 2. Bronchial wall thickening with partial opacification of the bilateral lower lobe bronchi. This may represent a mild bronchitis. 3. There is bilateral lower lobe linear densities which could be due to atelectasis or a low-grade pn eumonitis. 4. No evidence for an aortic dissection. 5. A 2 mm left upper lobe pulmonary nodule. 6. Mild paraseptal emphysema. 7. Biapical densities are nonspecific but favor scarring. ACT 112: Negative or not required by law. Electronically signed by: Jh Chambers M.D. 11/13/2022 8:49 AM
--- NOTE | 2022-11-13 09:28 | History & Physical Report ---
Date of Service November 13, 2022 Assessment & Plan (1) Chest pain: Plan: Pt with intermittent substernal chest pains that started yesterday - no improvement with DuoNeb, seem to have improved s/p aspirin and nitro in the ED. D-dimer elevated so CTA chest done - no PE, no aortic dissection. Family history of heart disease with last cardiac work-up >5 yrs ago per pt. - Observe in PCU overnight - Serial troponin - Check ECHO - Lipid panel in AM - Repeat EKG in AM - Consult cardiology - will make pt NPO after midnight in case additional work- up needed (2) Bronchitis: Plan: May have component of underlying bronchitis as well with recent URI, abnormal CT chest, wheezing on exam +/- underlying COPD - Received Decadron in the ED - Continue Breo as taking outpatient (3) Tobacco use: (4) Family history of heart disease: (5) Asthma: Plan Pt seen and reviewed with attending physician, Dr. Pineda. Plan of care discussed and as outlined above. Code Status: Full code DVT Prophylaxis: Matteo Chamberlain PA-C History of Present Illness Chief Complaint: Chest Pain Primary Care Provider: Olga Thomas This is a 57 y/o female with a PMH of Hodgkin Lymphoma s/p chemo, recent diagnosis of possible asthma, and ongoing tobacco use who presented to the ED overnight with intermittent substernal chest pain. Pt reports upper respiratory symptoms for the last 4-5 days after being around her grandchildren who have been sick with URIs. Yesterday morning, she had a subjective fevers, myalgias, sinus congestion when she went to work. She has been using Nyquil and Tylenol Severe Cold for symptoms. While at work, she started with "pinching" substernal chest pains that lasted seconds at a time. They seemed to radiate through to her back and bilateral shoulder blades. She may have multiple episodes in an hour or may go an hour without any pain. She tried Zantac, antacids, and Chikis- seltzer thinking that it was related to heartburn. However, no change in pain. She tried to rest at home last night but ongoing symptoms so she came to the ED for evaluation. She notes a significant family history of heart disease with both parents having "triple bypass" in their 50s. Her brother was also diagnosed with heart disease in his 50s, as well as had DM - he is . She has had prior cardiac work-up with both pharmacologic stress test and ECHO done 5-6 years ago and were negative. She is unable to tolerate an exercise stress test due to musculoskeletal effects from prior chemotherapy. In the ED, she received a DuoNeb without relief. She has since received aspirin and nitro and reports no further chest pain since then. No fever since yesterday AM. She was started on Breo 25 days ago due to potential new diagnosis of asthma - she had COVID about a year ago and felt like her lung function never recovered to baseline afterwards. She continues to smoke 1/2 to 1 PPD. Allergies Allergy/AdvReac Type Severity Reaction Status Date / Time pegfilgrastim [From Neulasta] Allergy Severe Anaphylaxis Verified 03/02/22 13:42 adhesive tape Allergy Mild blisters Verified 03/02/22 13:42 and redness Home Medications Medication Instructions Recorded Confirmed Type ascorbic acid (vitamin C) 500 mg 500 mg PO QAM 12/28/21 11/13/22 History capsule,extended release (Vitamin C) elderberry fruit 200 mg capsule 200 mg PO QAM 12/28/21 11/13/22 History garlic 500 mg capsule 500 mg PO QAM 12/28/21 11/13/22 History omega-3 fatty acids 1,000 mg PO QAM 12/28/21 11/13/22 History turmeric 400 mg capsule 400 mg PO QAM 12/28/21 11/13/22 History vitamin E 400 unit tablet 800 mg PO QAM 12/28/21 11/13/22 History cholecalciferol (vitamin D3) 125 250 mcg PO DAILY 11/13/22 11/13/22 History mcg (5,000 unit) tablet (Vitamin D3) coenzyme Q10 100 mg capsule (Co 100 mg PO DAILY 11/13/22 11/13/22 History Q-10) diclofenac sodium 100 mg 100 mg PO DAILY PRN Pain 11/13/22 11/13/22 History tablet,extended release 24 hr fluticasone furoate 100 1 inh inhalation DAILY 11/13/22 11/13/22 History mcg-vilanterol 25 mcg/dose inhalation powder (Breo Ellipta) jace root extract 50 mg tablet 50 mg PO DAILY 11/13/22 11/13/22 History Past Med/Surg History Medical History History of COVID-19 suspected covid-19. family tested positive 11/22/21. patient did not test. patient did experience sinus congestion, loss of taste and smell, sob, N/V, fever and chills starting 11/21/21. no current symptoms. History of fracture of right ankle Hodgkins lymphoma treated with chemotherapy, treated at [facility] in [place]. dx ~2012 Hx of colonic polyps Surgical History H/O lymph node biopsy H/O oral surgery salivary gland removal H/O vaginal hysterectomy History of cholecystectomy History of colonoscopy History of surgery port placement + port removal. Hx of tonsillectomy S/P removal of ovarian cyst Family History Mother Heart disease Hypertension Father Heart disease Brother Heart disease Diabetes Other Cancer Social History Smoking Status: Current every day smoker Tobacco Type: Cigarettes Cigarettes Per Day: 12; Second Hand Exposure: Yes; Do You Dip or Chew Tobacco: No; Hx Alcohol Use: Yes Alcohol type: beer Hx Substance Use: No Preferred Language: Latvian Communication Ability: Effective Reporting Manager Required: Yes Beliefs That Will Affect Care: None Current Living Situation: Spouse Feels Safe at Home: Yes Safety Concerns: Feels Safe At This Time Assistive Devices: Glasses Assistive Devices Comment: dentures Review of Systems Review of Systems: All systems reviewed & are unremarkable except as noted in HPI & below Constitutional: + fever, + chills, + fatigue and + anorexia Eyes: no diplopia and no worsening vision Ear, Nose, Mouth, Throat: + tinnitus, + nasal congestion, + nasal discharge and + sinus pain/pressure Respiratory: + cough; no dyspnea and no wheezing Cardiovascular: + chest pain and + edema; no palpitations, no lightheadedness and no syncope Gastrointestinal: no abdominal pain, no nausea, no vomiting and no diarrhea/loose stools Genitourinary: no dysuria and no hematuria Musculoskeletal: + radicular pain (chronic), + joint pain (chronic) and + myalgia (chronic since chemo) Integumentary: no rash and no yellowing of the skin Neurologic: + problem reported (chronic neuropathy since chemo); no dizziness and no headache(s) Psychiatric: no depression Physical Exam Constitutional: well developed and well nourished; no acute distress Eyes: + anicteric sclerae Neck: trachea midline Respiratory: no respiratory distress and no labored breathing Auscultation: + diminished lung sounds and + wheezes Cardiovascular: Rate/Rhythm: regular rate and regular rhythm Vessels: posterior tibial pulses present and radial pulses present; no carotid bruit Extremities: no pedal edema Gastrointestinal (Abdomen): Inspection/Auscultation: normal bowel sounds; abdomen not distended Percussion/Palpation: abdomen soft Musculoskeletal: Head/Neck/Chest: normocephalic, head atraumatic and neck supple Skin: no jaundice Neurologic: moves all extremities; no focal motor deficits and not confused Psychiatric: A+Ox3, euthymic affect Results & Data Results & Data ([facility]) Vital Signs (Past 12 Hours) Vital Signs Temp Pulse Pulse Resp BP BP Pulse Ox 11/13/22 07:00 92 H 18 126/75 97 11/13/22 06:30 74 14 126/77 11/13/22 06:23 73 20 93 11/13/22 06:00 79 15 130/79 94 11/13/22 05:27 36.6 C 99 H 20 149/81 H 94 O2 Del Method 11/13/22 07:00 Room Air 11/13/22 06:30 11/13/22 06:23 Room Air 11/13/22 06:00 Room Air 11/13/22 05:27 Room Air Laboratory Results Laboratory Results - last 24 hr 11/13/22 11/13/22 11/13/22 05:35 05:35 05:35 WBC 7.15 RBC 4.83 Hgb 14.1 Hct 41.9 MCV 86.7 MCH 29.2 MCHC 33.7 RDW Std Deviation 42.2 RDW Coeff of Barbara 13.3 Plt Count 174 MPV 10.7 Immature Gran % (Auto) 0.1 Neut % (Auto) 59.6 Lymph % (Auto) 28.1 [place] % (Auto) 9.1 Eos % (Auto) 2.5 Baso % (Auto) 0.6 Neut # (Auto) 4.26 Lymph # (Auto) 2.01 [place] # (Auto) 0.65 Eos # (Auto) 0.18 Baso # (Auto) 0.04 Immature Gran # (Auto) 0.01 PT 10.9 INR 1.0 APTT 31.3 H PTT Ratio 1.1 D-Dimer 760 H* Sodium 139 Potassium 3.6 Chloride 103 Carbon Dioxide 30 Anion Gap 6 BUN 10 Creatinine 0.75 Est Cr Clr Drug Dosing 100.4 Est GFR ( Amer) 104.0 Est GFR (Non-Af Amer) 89.7 BUN/Creatinine Ratio 13.3 Glucose 91 Calcium 8.6 Total Bilirubin 0.8 AST 31 ALT 48 Alkaline Phosphatase 93 Troponin I High Sens 3.2 Total Protein 7.4 Albumin 4.3 Globulin 3.1 Albumin/Globulin Ratio 1.4 SARS-CoV-2 (PCR) Influenza Type A (PCR) Influenza Type B (PCR) RSV (RT-PCR) 11/13/22 06:10 WBC RBC Hgb Hct MCV MCH MCHC RDW Std Deviation RDW Coeff of Barbara Plt Count MPV Immature Gran % (Auto) Neut % (Auto) Lymph % (Auto) [place] % (Auto) Eos % (Auto) Baso % (Auto) Neut # (Auto) Lymph # (Auto) [place] # (Auto) Eos # (Auto) Baso # (Auto) Immature Gran # (Auto) PT INR APTT PTT Ratio D-Dimer Sodium Potassium Chloride Carbon Dioxide Anion Gap BUN Creatinine Est Cr Clr Drug Dosing Est GFR ( Amer) Est GFR (Non-Af Amer) BUN/Creatinine Ratio Glucose Calcium Total Bilirubin AST ALT Alkaline Phosphatase Troponin I High Sens Total Protein Albumin Globulin Albumin/Globulin Ratio SARS-CoV-2 (PCR) NEGATIVE Influenza Type A (PCR) Negative Influenza Type B (PCR) Negative RSV (RT-PCR) Negative Diagnostic Findings Chest X-ray 11/13/22 - IMPRESSION: Moderate emphysema with no active disease in the chest. CTA Chest 11/13/22 - IMPRESSION: 1. No evidence for a pulmonary embolus. 2. Bronchial wall thickening with partial opacification of the bilateral lower lobe bronchi. This may represent a mild bronchitis. 3. There is bilateral lower lobe linear densities which could be due to atelectasis or a low-grade pneumonitis. 4. No evidence for an aortic dissection. 5. A 2 mm left upper lobe pulmonary nodule. 6. Mild paraseptal emphysema. 7. Biapical densities are nonspecific but favor scarring. Medications Administered Discontinued Medications Albuterol (Albut/Ipratrop 3mg/0.5mg Neb 3 Ml Vial) 12 ml NEB ONE ONE; Protocol Stop: 11/13/22 05:54 Last Admin: 11/13/22 06:22 Dose: 12 ml Documented By: KRISTOPHER Aspirin (Aspirin 81 Mg Chew) 324 mg PO NOW STA Stop: 11/13/22 05:54 Last Admin: 11/13/22 06:06 Dose: 324 mg Documented By: GALA Dexamethasone Sodium Phosphate (DexamethasonePf 10 Mg/Ml Vial) 10 mg IV NOW ONE Stop: 11/13/22 05:54 Last Admin: 11/13/22 06:06 Dose: 10 mg Documented By: GALA Ioversol (Optiray 320 500ml) 115 ml IV ONCE ONE Stop: 11/13/22 08:02 Last Admin: 11/13/22 08:01 Dose: 115 ml Documented By: EFREN Nitroglycerin (Nitroglycerin Sl 0.4 Mg/Tab Tab) 0.4 mg SL NOW STA Stop: 11/13/22 07:29 Last Admin: 11/13/22 07:43 Dose: 0.4 mg Documented By: NIKOLAI Supervising Physician Co-Signing Physician Notes 57-year-old lady with PMH of Hodgkin lymphoma status post chemo, recent diagnosis of possible asthma, ongoing tobacco abuse [since age 18, 1 packs a day on average] presented to the ED with intermittent substernal chest pain of 1 day duration. 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 Patient with significant family history of heart disease, father and mother had triple bypass in their 50s and brother had UT in his 42. Patient reports improvement in her chest pain after aspirin and nitroglycerin in the ED. Labs reviewed, electrolytes WNL. D-dimer elevated, CTA chest with no evidence of PE. It is concerning for mild bronchitis. Will monitor off antibiotic. Continue Breo as taking outpatient. Admitting EKG with NSR, admitting troponin negative, follow echo. Cardiology consult. Telemetry monitoring. Lipid panel. A and P: CP r/o ACS. Mild Bronchitis. Upon examination: GENERAL: Alert and oriented x3. NAD, on RA. HEENT: No pallor, no icterus. Pupils equal, round and reactive to light. Oral mucosa moist. NECK: No JVD, no neck masses. HEART: S1 and S2 heard. Regular rate and rhythm. No murmur, no gallop. RESPIRATORY SYSTEM: Normal AP diameter. No accessory muscle use. No wheezing, no crackles. ABDOMEN: Soft, bowel sounds present, nontender, no distention. CENTRAL NERVOUS SYSTEM: No facial droop. Speech is clear. Obeys simple commands. Moves extremities. EXTREMITIES: No edema, no erythema seen. I have seen and examined the patient and have discussed the case with the provider above. I agree with the assessment and plan as stated.
[2022-11-13] MEDS ORDERED: NITROGLYCERIN SL 0.4 MG/TAB TAB SL PRN (11:53)
[2022-11-13] MEDS ORDERED: ACETAMINOPHEN 325 MG TAB PO PRN (11:53)
--- NOTE | 2022-11-13 14:14 | Cardiology Consultation ---
Date of Consultation November 13, 2022 Assessment & Plan (1) Chest pain: (2) Tobacco use: (3) Asthma: (4) Family history of heart disease: Plan The patient is currently pain-free and hemodynamically stable. She will be admitted to the hospital on a telemetry unit. Cardiac markers will be drawn. We will have further recommendations following the above. History of Present Illness Attending Physician: Zeus Cardoso MD History of Present Illness This is a 57-year-old female with a history of smoking and no prior history of heart disease. Approximately a decade ago she was diagnosed with classic Hodgkin's lymphoma. She was treated with chemotherapy and no radiation. She has been in remission without recurrence. Yesterday she was in her usual state of health. She noted a chest heaviness and discomfort that radiated to her back and discomfort that radiated to her back. It would come and go. She tried several different antacids without improvement. Her pain lasted all day and through the night and then she decided to present to the emergency department. Her EKG showed no acute changes. Cardiac markers are pending. Patient did have a resting echocardiogram in the emergency department which I preliminarily reviewed and it with had no changes that would suggest myocardial ischemia. Currently the patient is resting comfortably and is hemodynamically stable. Allergies Allergy/AdvReac Type Severity Reaction Status Date / Time pegfilgrastim [From Neulasta] Allergy Severe Anaphylaxis Verified 03/02/22 13:42 adhesive tape Allergy Mild blisters Verified 03/02/22 13:42 and redness Home Medications Medication Instructions Recorded Confirmed Type ascorbic acid (vitamin C) 500 mg 500 mg PO QAM 12/28/21 11/13/22 History capsule,extended release (Vitamin C) elderberry fruit 200 mg capsule 200 mg PO QAM 12/28/21 11/13/22 History garlic 500 mg capsule 500 mg PO QAM 12/28/21 11/13/22 History omega-3 fatty acids 1,000 mg PO QAM 12/28/21 11/13/22 History turmeric 400 mg capsule 400 mg PO QAM 12/28/21 11/13/22 History vitamin E 400 unit tablet 800 mg PO QAM 12/28/21 11/13/22 History cholecalciferol (vitamin D3) 125 250 mcg PO DAILY 11/13/22 11/13/22 History mcg (5,000 unit) tablet (Vitamin D3) coenzyme Q10 100 mg capsule (Co 100 mg PO DAILY 11/13/22 11/13/22 History Q-10) diclofenac sodium 100 mg 100 mg PO DAILY PRN Pain 11/13/22 11/13/22 History tablet,extended release 24 hr fluticasone furoate 100 1 inh inhalation DAILY 11/13/22 11/13/22 History mcg-vilanterol 25 mcg/dose inhalation powder (Breo Ellipta) jace root extract 50 mg tablet 50 mg PO DAILY 11/13/22 11/13/22 History Patient History Medical History History of COVID-19 suspected covid-19. family tested positive 11/22/21. patient did not test. patient did experience sinus congestion, loss of taste and smell, sob, N/V, fever and chills starting 11/21/21. no current symptoms. History of fracture of right ankle Hodgkins lymphoma treated with chemotherapy, treated at [facility] in [place]. dx ~2012 Hx of colonic polyps Surgical History H/O lymph node biopsy H/O oral surgery salivary gland removal H/O vaginal hysterectomy History of cholecystectomy History of colonoscopy History of surgery port placement + port removal. Hx of tonsillectomy S/P removal of ovarian cyst Family History Mother Heart disease Hypertension Father Heart disease Brother Heart disease Diabetes Other Cancer Social History Smoking Status: Current every day smoker Tobacco Type: Cigarettes Cigarettes Per Day: 12; Second Hand Exposure: Yes; Do You Dip or Chew Tobacco: No; Hx Alcohol Use: Yes Alcohol type: beer Hx Substance Use: No Preferred Language: Yoruba Communication Ability: Effective Religion Instructor Required: Yes Beliefs That Will Affect Care: None Current Living Situation: Spouse Feels Safe at Home: Yes Safety Concerns: Feels Safe At This Time Assistive Devices: Glasses Assistive Devices Comment: dentures Review of Systems Review of Systems: Review of Systems: See HPI for pertinent positives. All other 10 point review of systems are negative. Physical Exam Physical Exam: General: no acute distress and stated age Head: normocephalic, no masses, lesions, tenderness or abnormalities Eyes: conjunctiva are pink and non-injected, sclera clear Neck: supple, no adenopathy, no bruits, normal jugular venous pulse, no hepatojugular reflux Chest: normal shape and normal respiratory effort Lungs: clear to auscultation and percussion Cardiac Exam: - regular rate & rhythm, no murmurs gallops or rubs - normal S1, normal S2 Pulses: 2(+) throughout Abdomen: abdomen soft, non-tender, no abnormal masses and no hepatosplenomegaly Musculoskeletal: no gait disturbance, no joint inflammation, no deforming ar thritis Extremities: no edema and no cyanosis Neuro: grossly normal exam Results & Data ([facility]) Vital Signs (Past 12 Hours) Vital Signs Temp Pulse Pulse Resp BP BP Pulse Ox 11/13/22 11:53 100 H 11/13/22 11:53 11/13/22 07:00 11/13/22 07:00 36.6 C 93 H 18 146/78 H 95 11/13/22 11:00 91 H 18 136/70 93 11/13/22 09:00 90 18 88/62 L 94 11/13/22 07:00 92 H 18 126/75 97 11/13/22 06:30 74 14 126/77 11/13/22 06:23 73 20 93 11/13/22 06:00 79 15 130/79 94 11/13/22 05:27 36.6 C 99 H 20 149/81 H 94 Pulse Ox O2 Del Method O2 Del Method 11/13/22 11:53 11/13/22 11:53 95 Room Air 11/13/22 07:00 Room Air 11/13/22 07:00 Room Air 11/13/22 11:00 Room Air 11/13/22 09:00 Room Air 11/13/22 07:00 Room Air 11/13/22 06:30 11/13/22 06:23 Room Air 11/13/22 06:00 Room Air 11/13/22 05:27 Room Air Laboratory Results Laboratory Results - last 24 hr 11/13/22 11/13/22 11/13/22 05:35 05:35 05:35 WBC 7.15 RBC 4.83 Hgb 14.1 Hct 41.9 MCV 86.7 MCH 29.2 MCHC 33.7 RDW Std Deviation 42.2 RDW Coeff of Barbara 13.3 Plt Count 174 MPV 10.7 Immature Gran % (Auto) 0.1 Neut % (Auto) 59.6 Lymph % (Auto) 28.1 [place] % (Auto) 9.1 Eos % (Auto) 2.5 Baso % (Auto) 0.6 Neut # (Auto) 4.26 Lymph # (Auto) 2.01 [place] # (Auto) 0.65 Eos # (Auto) 0.18 Baso # (Auto) 0.04 Immature Gran # (Auto) 0.01 PT 10.9 INR 1.0 APTT 31.3 H PTT Ratio 1.1 D-Dimer 760 H* Sodium 139 Potassium 3.6 Chloride 103 Carbon Dioxide 30 Anion Gap 6 BUN 10 Creatinine 0.75 Est Cr Clr Drug Dosing 100.4 Est GFR ( Amer) 104.0 Est GFR (Non-Af Amer) 89.7 BUN/Creatinine Ratio 13.3 Glucose 91 Calcium 8.6 Total Bilirubin 0.8 AST 31 ALT 48 Alkaline Phosphatase 93 Troponin I High Sens 3.2 Total Protein 7.4 Albumin 4.3 Globulin 3.1 Albumin/Globulin Ratio 1.4 SARS-CoV-2 (PCR) Influenza Type A (PCR) Influenza Type B (PCR) RSV (RT-PCR) 11/13/22 11/13/22 06:10 12:23 WBC RBC Hgb Hct MCV MCH MCHC RDW Std Deviation RDW Coeff of Barbara Plt Count MPV Immature Gran % (Auto) Neut % (Auto) Lymph % (Auto) [place] % (Auto) Eos % (Auto) Baso % (Auto) Neut # (Auto) Lymph # (Auto) [place] # (Auto) Eos # (Auto) Baso # (Auto) Immature Gran # (Auto) PT INR APTT PTT Ratio D-Dimer Sodium Potassium Chloride Carbon Dioxide Anion Gap BUN Creatinine Est Cr Clr Drug Dosing Est GFR ( Amer) Est GFR (Non-Af Amer) BUN/Creatinine Ratio Glucose Calcium Total Bilirubin AST ALT Alkaline Phosphatase Troponin I High Sens 2.7 Total Protein Albumin Globulin Albumin/Globulin Ratio SARS-CoV-2 (PCR) NEGATIVE Influenza Type A (PCR) Negative Influenza Type B (PCR) Negative RSV (RT-PCR) Negative Medications Administered Current Inpatient Medications Acetaminophen (Acetaminophen 325 Mg Tab) 650 mg PO Q4H PRN PRN Reason: Pain or Fever Stop: 12/13/22 11:52 Enoxaparin Sodium (Enoxaparin Inj 40 Mg/0.4 Ml Syr) 40 mg SQ QAM FOREIGN Stop: 12/14/22 08:59 Fluticasone/Vilanterol (Fluticasone/Vilanterol 100/25mcg 14 Puffs/Inhaler) 1 puffs INH DAILY [facility] Stop: 12/14/22 08:59 Nitroglycerin (Nitroglycerin Sl 0.4 Mg/Tab Tab) 0.4 mg SL UD PRN PRN Reason: Chest Pain Stop: 12/13/22 11:52
[2022-11-14 06:51] LABS: Basophils # (auto) 0.02 K/uL (0-0.2); Basophils % (auto) 0.3 %; Eosinophils # (auto) 0.06 K/uL (0-0.50); Eosinophils % (auto) 0.8 %; Hemoglobin 13.8 g/dl (12.0-16.0); Immature Granulocytes # (auto) 0.01 K/uL (0.00-0.02); Immature Granulocytes % (auto) 0.1 %; Mean Corpuscular Hemoglobin 29.6 pg (25.0-34.0); Mean Corpuscular Hgb Conc 34.5 g/dL (32.0-36.0); Mean Corpuscular Volume 85.7 fL (80.0-100.0); Mean Platelet Volume 10.6 fL (9.4-12.3); Monocytes # (auto) 0.62 K/uL (0.24-0.82); Monocytes % (auto) 7.8 %; Neutrophils # (auto) 4.88 K/uL (1.4-6.5); Platelet Count 170 K/uL (130-400); RDW Coefficient of Variation 13.4 % (11.5-14.5); RDW Standard Deviation 41.7 fL (36.4-46.3); Red Blood Count 4.67 M/uL (3.93-5.22); White Blood Count 7.99 K/ul (4.8-10.8)
[2022-11-14 07:17] LABS: BUN Creatinine Ratio 16.9 (10-20); Calcium 8.7 mg/dl (8.5-10.1); Chol HDL Ratio 4.2 (0-5); Creatinine Clr Calc Pharmacy 116.2 ml/min; Est GFR (African American) 115.8 ml/min; Est GFR (Non-African American) 99.9 ml/min; Potassium 3.6 mmol/L (3.5-5.1)
[2022-11-14 07:28] LABS: Partial Thromboplastin Time 28.8 Seconds (21.0-31.0)
[2022-11-14] MEDS ORDERED: FLUTICASONE/VILANTEROL 100/25MCG 14 PUFFS/INHALER INH SCH (09:00)
[2022-11-14] MEDS ORDERED: ENOXAPARIN INJ 40 MG/0.4 ML SYR SQ SCH (09:00)
[2022-11-14] MEDS ORDERED: PANTOprazole 40 MG TAB PO SCH (09:50)
--- NOTE | 2022-11-14 12:05 | Cardiology Progress Note ---
Date of Service November 14, 2022 Assessment & Plan (1) Chest pain: (2) Tobacco use: (3) Asthma: (4) Family history of heart disease: Plan Clinically, believe the patient's chest pain is atypical. Despite having hours and hours of discomfort her high-sensitivity troponins are all flat and normal. Echocardiogram shows no wall motion abnormalities. I believe the patient can be discharged. She does have risk factors including smoking and family history of heart disease. I will arrange for an outpatient pharmacologic nuclear stress test. The patient states that following her chemotherapy for Hodgkin's she has difficulty ambulating and does not feel she can do exercise on the treadmill. Following the pharmacologic nuclear stress test I will have her follow-up in my clinic. Admission and Anticipated Discharge Date Admission Date: November 13, 2022 Subjective The patient had an uneventful night. Review of Systems Review of Systems: Review of Systems: See HPI for pertinent positives. All other 10 point review of systems are negative. Physical Exam Physical Exam: General: no acute distress and stated age Head: normocephalic, no masses, lesions, tenderness or abnormalities Eyes: conjunctiva are pink and non-injected, sclera clear Neck: supple, no adenopathy, no bruits, normal jugular venous pulse, no hepatojugular reflux Chest: normal shape and normal respiratory effort Lungs: clear to auscultation and percussion Cardiac Exam: - regular rate & rhythm, no murmurs gallops or rubs - normal S1, normal S2 Pulses: 2(+) throughout Abdomen: abdomen soft, non-tender, no abnormal masses and no hepatosplenomegaly Musculoskeletal: no gait disturbance, no joint inflammation, no deforming arthritis Extremities: no edema and no cyanosis Neuro: grossly normal exam Results & Data ([facility]) Vital Signs (Past 12 Hours) Vital Signs Temp Pulse Pulse Resp BP BP Pulse Ox 11/14/22 11:19 36.6 C 70 18 127/80 96 11/14/22 08:00 11/14/22 08:00 11/14/22 07:00 63 11/14/22 07:04 36.4 C L 77 18 134/79 92 11/14/22 04:10 75 11/14/22 03:21 36.8 C 86 18 115/72 94 Pulse Ox O2 Del Method O2 Del Method 11/14/22 11:19 Room Air 11/14/22 08:00 Room Air 11/14/22 08:00 92 Room Air 11/14/22 07:00 11/14/22 07:04 Room Air 11/14/22 04:10 11/14/22 03:21 Room Air Laboratory Results Laboratory Results - last 24 hr 11/13/22 11/13/22 11/14/22 12:23 18:33 06:31 WBC RBC Hgb Hct MCV MCH MCHC RDW Std Deviation RDW Coeff of Barbara Plt Count MPV Immature Gran % (Auto) Neut % (Auto) Lymph % (Auto) [place] % (Auto) Eos % (Auto) Baso % (Auto) Neut # (Auto) Lymph # (Auto) [place] # (Auto) Eos # (Auto) Baso # (Auto) Immature Gran # (Auto) APTT PTT Ratio Sodium Potassium Chloride Carbon Dioxide Anion Gap BUN Creatinine Est Cr Clr Drug Dosing Est GFR ( Amer) Est GFR (Non-Af Amer) BUN/Creatinine Ratio Glucose Calcium Troponin I High Sens 2.7 < 2.3 Triglycerides Cancelled Cholesterol Cancelled LDL Cholesterol, Calc Cancelled VLDL Cholesterol, Calc Cancelled HDL Cholesterol Cancelled Cholesterol/HDL Ratio Cancelled 11/14/22 11/14/22 11/14/22 06:31 06:31 06:31 WBC 7.99 RBC 4.67 Hgb 13.8 Hct 40.0 MCV 85.7 MCH 29.6 MCHC 34.5 RDW Std Deviation 41.7 RDW Coeff of Barbara 13.4 Plt Count 170 MPV 10.6 Immature Gran % (Auto) 0.1 Neut % (Auto) 61.0 Lymph % (Auto) 30.0 [place] % (Auto) 7.8 Eos % (Auto) 0.8 Baso % (Auto) 0.3 Neut # (Auto) 4.88 Lymph # (Auto) 2.40 [place] # (Auto) 0.62 Eos # (Auto) 0.06 Baso # (Auto) 0.02 Immature Gran # (Auto) 0.01 APTT 28.8 PTT Ratio 1.0 Sodium 139 Potassium 3.6 Chloride 104 Carbon Dioxide 27 Anion Gap 8 BUN 11 Creatinine 0.65 Est Cr Clr Drug Dosing 116.2 Est GFR ( Amer) 115.8 Est GFR (Non-Af Amer) 99.9 BUN/Creatinine Ratio 16.9 Glucose 87 Calcium 8.7 Troponin I High Sens 3.0 Triglycerides 119 Cholesterol 189 LDL Cholesterol, Calc 120 VLDL Cholesterol, Calc 24 HDL Cholesterol 45 Cholesterol/HDL Ratio 4.2 Medications Administered Current Inpatient Medications Acetaminophen (Acetaminophen 325 Mg Tab) 650 mg PO Q4H PRN PRN Reason: Pain or Fever Stop: 12/13/22 11:52 Enoxaparin Sodium (Enoxaparin Inj 40 Mg/0.4 Ml Syr) 40 mg SQ QAM [facility] Stop: 12/14/22 08:59 Last Admin: 11/14/22 09:57 Dose: 40 mg Fluticasone/Vilanterol (Fluticasone/Vilanterol 100/25mcg 14 Puffs/Inhaler) 1 puffs INH DAILY [facility] Stop: 12/14/22 08:59 Last Admin: 11/14/22 09:57 Dose: 1 puffs Nitroglycerin (Nitroglycerin Sl 0.4 Mg/Tab Tab) 0.4 mg SL UD PRN PRN Reason: Chest Pain Stop: 12/13/22 11:52 Pantoprazole Sodium (Pantoprazole 40 Mg Tab) 40 mg PO QAM [facility] Stop: 12/14/22 09:49 Last Admin: 11/14/22 11:11 Dose: 40 mg (1) Chest pain Chest pain type: unspecified Qualified Code(s): R07.9 - Chest pain, unspecified
--- NOTE | 2022-11-14 12:18 | Discharge Summary ---
Date of Service November 14, 2022 Admission HPI Per Admitting Provider This is a 57 y/o female with a PMH of Hodgkin Lymphoma s/p chemo, recent diagnosis of possible asthma, and ongoing tobacco use who presented to the ED overnight with intermittent substernal chest pain. Pt reports upper respiratory symptoms for the last 4-5 days after being around her grandchildren who have been sick with URIs. Yesterday morning, she had a subjective fevers, myalgias, sinus congestion when she went to work. She has been using Nyquil and Tylenol Severe Cold for symptoms. While at work, she started with "pinching" substernal chest pains that lasted seconds at a time. They seemed to radiate through to her back and bilateral shoulder blades. She may have multiple episodes in an hour or may go an hour without any pain. She tried Zantac, antacids, and Chikis- seltzer thinking that it was related to heartburn. However, no change in pain. She tried to rest at home last night but ongoing symptoms so she came to the ED for evaluation. She notes a significant family history of heart disease with both parents having "triple bypass" in their 50s. Her brother was also diagnosed with heart disease in his 50s, as well as had DM - he is . She has had prior cardiac work-up with both pharmacologic stress test and ECHO done 5-6 years ago and were negative. She is unable to tolerate an exercise stress test due to musculoskeletal effects from prior chemotherapy. In the ED, she received a DuoNeb without relief. She has since received aspirin and nitro and reports no further chest pain since then. No fever since yesterday AM. She was started on Breo 25 days ago due to potential new diagnosis of asthma - she had COVID about a year ago and felt like her lung function never recovered to baseline afterwards. She continues to smoke 1/2 to 1 PPD. Admission Exam Per Admitting Provider Constitutional: well developed and well nourished; no acute distress Eyes: + anicteric sclerae Neck: trachea midline Respiratory: no respiratory distress and no labored breathing Auscultation: + diminished lung sounds and + wheezes Cardiovascular: Rate/Rhythm: regular rate and regular rhythm Vessels: posterior tibial pulses present and radial pulses present; no carotid bruit Extremities: no pedal edema Gastrointestinal (Abdomen): Inspection/Auscultation: normal bowel sounds; abdomen not distended Percussion/Palpation: abdomen soft Musculoskeletal: Head/Neck/Chest: normocephalic, head atraumatic and neck supple Skin: no jaundice Neurologic: moves all extremities; no focal motor deficits and not confused Psychiatric: A+Ox3, euthymic affect Principal Diagnosis Chest pain rule out ACS Mild bronchitis Discharge Exam GENERAL: Alert and oriented x3. NAD, on RA. HEENT: No pallor, no icterus. Pupils equal, round and reactive to light. Oral mucosa moist. NECK: No JVD, no neck masses. HEART: S1 and S2 heard. Regular rate and rhythm. No murmur, no gallop. RESPIRATORY SYSTEM: Normal AP diameter. No accessory muscle use. No wheezing, no crackles. ABDOMEN: Soft, bowel sounds present, nontender, no distention. CENTRAL NERVOUS SYSTEM: No facial droop. Speech is clear. Obeys simple commands. Moves extremities. EXTREMITIES: No edema, no erythema seen. Discharge Data Allergies Allergy/AdvReac Type Severity Reaction Status Date / Time pegfilgrastim [From Neulasta] Allergy Severe Anaphylaxis Verified 03/02/22 13:42 adhesive tape Allergy Mild blisters Verified 03/02/22 13:42 and redness Consultations 11/13/22 09:22 ED Decision to Admit Stat 11/13/22 12:07 Consult Cardiology Routine Ordered Studies 11/13/22 07:26 CT angio chest PE protocol Stat Hospital Course (1) Chest pain: Plan 57-year-old lady with PMH of Hodgkin lymphoma status post chemo, recent diagnosis of possible asthma, ongoing tobacco abuse [since age 18, 1 packs a day on average] presented to the ED 11/14 with intermittent substernal chest pain of 1 day duration. 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 Patient with significant family history of heart disease, father and mother had triple bypass in their 50s and brother had [place] in his 42. Troponin x3 were negative. Echo with EF of 60 to 65% and no wall motion abnormality. Admitting EKG and follow-up EKG with no evidence of acute ischemia. Electrolytes WNL. Cardiology evaluated and plan for outpatient stress test. Patient will be discharged on pantoprazole to see if it helps with her upper belly pain, patient to follow-up with PCP on progress for evaluation whether or not this be continued. Patient has some mild cough with clear sputum, continue to maintain adequate rest and hydration. Patient is being discharged home with following instruction at the point of discharge: Follow-up with your primary care physician within a week time and likely you will need blood test CBC/CMP/magnesium and your EKG. Follow-up with your cardiology as an outpatient and likely you will be set up for stress test. Your LDL level were within normal limit, but depending on how the cardiac evaluation goes you might or might not need to be on a statin, please follow-up closely with your heart doctor as outpatient. You will be put on Protonix to see if it helps with your upper belly pain, follow the progress with your primary care physician upon discharge. Take your medications as prescribed. Home Health Attestation I certify that this patient is under my care and that I, or a physicians administrative sales assistant working with me, had a face to-face encounter that meets the home health [id number] encounter requirements with this patient. The encounter with the patient was in whole, or in part, for the following medical condition, which is the primary reason for home health care (list medical condition): I certify that, based on my findings, the following services are medically necessary home health services: My clinical findings support the need for the above services because: Further, I certify that my clinical findings support that this patient is homebound (i.e. absences from home require considerable and taxing effort and are for medical reasons or restorationist services or infrequently or of short duration when for other reasons) because: Certification for Home Health Services: Based on the above findings, I certify that this patient is confined to the home and needs intermittent senior care care, physical therapy and/or speech therapy or continues to need occupational therapy. The patient is under my care, and I have initiated the establishment of the plan of care. This patient will be followed by a physician who will periodically review the plan of care. Total Time Total Time Spent Total Time Spent (In Minutes): 40 Discharge Plan Discharge Items Patient Disposition: Home - Self-Care Reason For Visit: CHEST PAIN Discharge Diagnosis: Chest pain rule out ACS Mild bronchitis Activity: Resume your previous activity Non-emergency contact: Primary Care Provider Call non-emergency contact if: you have any medication questions, your symptoms worsen and your temperature is above 101 Follow-up/Referrals: Olga Thomas M.D. [Primary Care Provider] - Diet: Heart Healthy Addtl Attending Provider Instructions: Follow-up with your primary care physician within a week time and likely you will need blood test CBC/CMP/magnesium and your EKG. Follow-up with your cardiology as an outpatient and likely you will be set up for stress test. Your LDL level were within normal limit, but depending on how the cardiac evaluation goes you might or might not need to be on a statin, please follow-up closely with your heart doctor as outpatient. You will be put on Protonix to see if it helps with your upper belly pain, follow the progress with your primary care physician upon discharge. Take your medications as prescribed. Pending Studies at Discharge: No Stand-Alone Forms: My [employer], Smoking Cessation Medications and DC Order Prescriptions: New pantoprazole 40 mg Tablet,Delayed Release (Dr/Ec) 40 mg PO QAM Qty: 14 0RF Continued ascorbic acid (vitamin C) [Vitamin C] 500 mg Capsule, Extended Release 500 mg PO QAM diclofenac sodium 100 mg tablet extended release 24 hr 100 mg PO DAILY PRN (Reason: Pain) cholecalciferol (vitamin D3) [Vitamin D3] 125 mcg (5,000 unit) Tablet 250 mcg PO DAILY fluticasone furoate-vilanterol [Breo Ellipta] 100-25 mcg/dose blister with device 1 inh INHALATION DAILY coenzyme Q10 [Co Q-10] 100 mg Capsule 100 mg PO DAILY Discontinued garlic 500 mg Capsule 500 mg PO QAM omega-3 fatty acids Capsule 1,000 mg PO QAM vitamin E 400 unit Tablet 800 mg PO QAM elderberry fruit 200 mg Capsule 200 mg PO QAM turmeric 400 mg Capsule 400 mg PO QAM jace root extract 50 mg Tablet 50 mg PO DAILY Discharge Orders: Discharge Order (Routine); Ordered 11/14/22 Ordered By: Aliya Pineda Admission Data Admit Date/Time: 11/13/22 09:37 Attending Provider: Aliya Pineda Admit Provider: Zeus Cardoso Primary Care Provider: Olga Thomas Other Providers: Zeus Cardoso ; Gabriel Bejarano
--- NOTE | 2022-11-14 21:53 | Electrocardiogram Report ---
Test Reason : Blood Pressure : / mmHG Vent. Rate : 091 BPM Atrial Rate : 091 BPM P-R Int : 190 ms QRS Dur : 080 ms QT Int : 334 ms P-R-T Axes : 050 -26 040 degrees QTc Int : 410 ms Normal sinus rhythm Low voltage QRS Septal infarct (cited on or before 23-AUG-2021) Inferior infarct , age undetermined Abnormal ECG When compared with ECG of 23-AUG-2021 20:56, Questionable change in initial forces of Anterior leads Nonspecific T wave abnormality, improved in Anterior leads Confirmed by Osmar Navarro ([id number]) on 11/14/2022 9:52:44 PM Referred By: Confirmed By:Osmar Navarro
--- NOTE | 2022-11-14 21:56 | Electrocardiogram Report ---
Test Reason : Blood Pressure : / mmHG Vent. Rate : 086 BPM Atrial Rate : 086 BPM P-R Int : 174 ms QRS Dur : 072 ms QT Int : 380 ms P-R-T Axes : 069 -07 052 degrees QTc Int : 454 ms Normal sinus rhythm Septal infarct (cited on or before 23-AUG-2021) Abnormal ECG When compared with ECG of 13-NOV-2022 05:31, No significant change was found Confirmed by Osmar Navarro ([id number]) on 11/14/2022 9:56:34 PM Referred By: REFERRED SELF Confirmed By:Osmar Navarro
--- NOTE | 2022-11-16 06:07 | Electrocardiogram Report ---
Test Reason : Blood Pressure : / mmHG Vent. Rate : 073 BPM Atrial Rate : 073 BPM P-R Int : 200 ms QRS Dur : 070 ms QT Int : 400 ms P-R-T Axes : 063 005 047 degrees QTc Int : 440 ms Normal sinus rhythm Septal infarct (cited on or before 23-AUG-2021) Abnormal ECG When compared with ECG of 13-NOV-2022 06:59, No significant change was found Confirmed by Osmar Navarro ([id number]) on 11/16/2022 6:07:18 AM Referred By: REFERRED SELF Confirmed By:Osmar Navarro
== END 2022-11-14 16:03 | disposition home or self-care (01) ==
LOC: ED 05:25 → 2S 05:25 → SUATTDRO 09:37 → 2S 11:19
DX: Z88.8 Allergy status to other drugs, medicaments and biological substances; Z82.49 Family history of ischemic heart disease and other diseases of the circulatory system; F17.210 Nicotine dependence, cigarettes, uncomplicated; Z91.048 Other nonmedicinal substance allergy status; J45.909 Unspecified asthma, uncomplicated; R07.89 Other chest pain